=== PATIENT | female | born 1980 | race Caucasian/White ===

== ENCOUNTER 2017-03-28 08:35 | Emergency (ER) | payer SELFPAY ==
[~2017-03-28] VITALS: Ht 180.3 cm; Wt 180.0 kg
[~2017-03-28 08:35] MED LIST: APIX5TAB PO; CARD180C5 PO; CLON1 PO; METF500 PO; METO-309 PO; ROBIDM5S PO
[2017-03-28 08:36] VITALS: BP 217/108; PULSE 112; RESP 24; TEMP 97.8; O2SAT 100
[2017-03-28 08:56] VITALS: RESP 18; O2SAT 99
[2017-03-28] MEDS ORDERED: LORazepam 2 MG/ML VIAL IV PUSH ONE (09:00)
[2017-03-28] MEDS ORDERED: SODIUM CHLORIDE 0.9% FLUSH 10 ML FLUSH IVF PRN (09:00)
--- NOTE | 2017-03-28 09:15 | RADRPT ---
EXAM DATE/TIME: 03/28/2017 08:55 [facility] COMPARISON: CHEST SINGLE AP, September 01, 2016, 13:32. INDICATIONS : Short of breath. MEDICAL HISTORY : atrial fibrillation. SURGICAL HISTORY : None. ENCOUNTER: Initial ACUITY: 1 day PAIN SCORE: 0/10 LOCATION: Bilateral chest FINDINGS: A single view of the chest demonstrates the lungs to be symmetrically aerated without evidence of mas s, infiltrate or effusion. The cardiomediastinal contours are unremarkable. Osseous structures are intact. CONCLUSION: No acute disease. Braxton Rosales MD on March 28, 2017 at 9:12 Board Certified Radiologist. This report was verified electronically.
--- NOTE | 2017-03-28 09:21 | PD ---
HPI Chief Complaint: Dizziness Time Seen by Provider: 08:46 Travel History International Travel<30 days: No Contact w/Intl Traveler<30days: No Traveled to known affect area: No History of Present Illness HPI This is a 36-year-old female with a history of diet-controlled diabetes mellitus , previous A. fib, who presents today with complaints of episode of shortness of breath and dizziness. The patient reports she was on her way to work when she started feeling dizzy and then had shortness of breath.. She denies any chest pain, chest pressure. She denies any nausea or diaphoresis. The patient was on pelvic was a year ago. When asked why, she stated it was because of her A. fib. She has been out of A. fib and they took her off of it. She does have a history of anxiety disorder. She states it feels like a bad anxiety episode. There are no other complaints at this time. PFSH Past Medical History Asthma: Yes (MILD) Anxiety: Yes Cancer: No Cardiovascular Problems: Yes (HTN) Diminished Hearing: No Endocrine: No Genitourinary: No Headaches: Yes Hypertension: Yes Immune Disorder: No Musculoskeletal: Yes Neurologic: Yes Psychiatric: Yes Reproductive: Yes (PCOS) Respiratory: No Integumentary: Yes (PINONODAL CYST) Immunizations Current: Yes Migraines: Yes Sickle Cell Disease: No Tetanus Vaccination: > 5 Years Influenza Vaccination: No ?: Not Menopausal: Yes : 0 Past Surgical History Surgical History: No Previous Surgery Oral Surgery: Yes (TOOTH EXTRACTION) Other Surgery: Yes (DENTAL ) Social History Alcohol Use: Yes (Social) Tobacco Use: Yes (1 PACK PER DAY) Substance Use: No (PT DENIES) Allergies-Medications (Allergen,Severity, Reaction): Coded Allergies: Augmentin (Verified Allergy, Severe, THROAT SWELLS, SOB, 03/28/17) Cipro (Verified Adverse Reaction, Intermediate, Nausea/Vomiting, 03/28/17) Reported Meds & Prescriptions Reported Meds & Active Scripts Active No Active Prescriptions or Reported Medications Review of Systems Except as stated in HPI: all other systems reviewed are Neg General / Constitutional: No: Fever HENT: No: Headaches, Neck Pain Cardiovascular: No: Chest Pain or Discomfort, Palpitations Respiratory: Positive: Shortness of Breath, No: Cough Gastrointestinal: No: Nausea, Vomiting, Abdominal Pain Genitourinary: No: Frequency, Dysuria Musculoskeletal: No: Weakness, Pain Neurologic: Positive: Dizziness, No: Weakness, Syncope, Headache, Sensory Disturbance Psychiatric: Positive: Anxiety (estriol), No: Substance Abuse Physical Exam Narrative GENERAL: Well-developed obese female in no acute respiratory distress. SKIN: Focused skin assessment warm/dry. HEAD: Atraumatic. Normocephalic. EYES: No scleral icterus. No injection or drainage. ENT: Mucous membranes pink and moist. NECK: Trachea midline. Supple CARDIOVASCULAR: Tachycardic with a rate between 101 05. Normal rhythm. No murmur appreciated. RESPIRATORY: No accessory muscle use. Clear to auscultation. Breath sounds equal bilaterally. GASTROINTESTINAL: Abdomen soft, non-tender, nondistended. MUSCULOSKELETAL: No obvious deformities. No clubbing. No cyanosis. Chronic bilateral lower extremity edema. NEUROLOGICAL: Awake and alert. No obvious cranial nerve deficits. Motor grossly within normal limits. Normal speech. PSYCHIATRIC: Appropriate mood and affect; insight and judgment normal. Data Data Last Documented VS Vital Signs Date Time Temp Pulse Resp B/P Pulse Ox O2 Delivery O2 Flow Rate FiO2 03/28/17 10:00 96 17 143/89 99 Room Air 03/28/17 08:36 97.8 Orders Complete Blood Count With Diff (03/28/17 08:52) Comprehensive Metabolic Panel (03/28/17 08:52) D-Dimer (03/28/17 08:52) Ckmb (Isoenzyme) Profile (03/28/17 08:52) Troponin I (03/28/17 08:52) Iv Access Insert/Monitor (03/28/17 08:52) Electrocardiogram (03/28/17 08:52) Ecg Monitoring (03/28/17 08:52) Oximetry (03/28/17 08:52) Oxygen Administration (03/28/17 08:52) Chest, Single Ap (03/28/17 08:52) Sodium Chloride 0.9% Flush (Ns Flush) (03/28/17 09:00) Lorazepam Inj (Ativan Inj) (03/28/17 09:00) Labs Laboratory Tests Test 03/28/17 09:00 White Blood Count 11.4 TH/MM3 Red Blood Count 4.57 MIL/MM3 Hemoglobin 12.9 GM/DL Hematocrit 40.0 % Mean Corpuscular Volume 87.6 FL Mean Corpuscular Hemoglobin 28.2 PG Mean Corpuscular Hemoglobin 32.2 % Concent Red Cell Distribution Width 14.5 % Platelet Count 331 TH/MM3 Mean Platelet Volume 8.3 FL Neutrophils (%) (Auto) 67.2 % Lymphocytes (%) (Auto) 22.4 % Monocytes (%) (Auto) 6.7 % Eosinophils (%) (Auto) 3.1 % Basophils (%) (Auto) 0.6 % Neutrophils # (Auto) 7.6 TH/MM3 Lymphocytes # (Auto) 2.6 TH/MM3 Monocytes # (Auto) 0.8 TH/MM3 Eosinophils # (Auto) 0.3 TH/MM3 Basophils # (Auto) 0.1 TH/MM3 CBC Comment DIFF FINAL Differential Comment D-Dimer Quantitative (PE/DVT) 0.36 MG/L FEU Sodium Level 138 MEQ/L Potassium Level 4.2 MEQ/L Chloride Level 104 MEQ/L Carbon Dioxide Level 26.7 MEQ/L Anion Gap 7 MEQ/L Blood Urea Nitrogen 16 MG/DL Creatinine 0.64 MG/DL Estimat Glomerular Filtration 106 ML/MIN Rate Random Glucose 131 MG/DL Calcium Level 8.5 MG/DL Total Bilirubin 0.2 MG/DL Aspartate Amino Transf 13 U/L (AST/SGOT) Alanine Aminotransferase 23 U/L (ALT/SGPT) Alkaline Phosphatase 97 U/L Total Creatine Kinase 53 U/L Troponin I LESS THAN 0.02 NG/ML Total Protein 7.2 GM/DL Albumin 3.1 GM/DL MDM Medical Decision Making Medical Screen Exam Complete: Yes Emergency Medical Condition: Yes Differential Diagnosis ACS versus pulmonary embolism versus anxiety episode Narrative Course 36-year-old female with a history of anxiety disorder, previous A. 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 The patient is nonfocal and has some no symptoms at the time my examination. She does report a history of anxiety and states that this felt like a "bad anxiety attack". EKG shows no evidence of acute process. D-dimer is normal. Cardiac enzymes are normal. Blood sugar was slightly elevated at 131. The patient be discharged and told to follow up with her primary care physician. I believe this may have been an anxiety attack. She was given 1 mg of Ativan. She'll be discharged home with her friend at the bedside. Diagnosis Primary Impression: Panic disorder [episodic paroxysmal anxiety] without agoraphobia Additional Impression: Elevated random blood glucose level Additional Instructions: Follow up with your primary care physician for further evaluation of the elevated blood glucose. Urine on passing blood glucose was 131 today. Scripts No Active Prescriptions or Reported Meds Disposition: 01 DISCHARGE HOME Condition: Stable Manpreet Reyes MD Mar 28, 2017 09:20
[2017-03-28 09:39] LABS: AUTOMATED NEUTROPHIL # 7.6 TH/MM3 (1.8-7.7); BASOPHIL # 0.1 TH/MM3 (0-0.2); BASOPHIL % 0.6 % (0.0-2.0); EOSINOPHIL # 0.3 TH/MM3 (0-0.4); EOSINOPHIL % 3.1 % (0.0-4.0); HEMO FLAGS DIFF FINAL; LYMPH % 22.4 % (9.0-44.0); LYMPHOCYTE # 2.6 TH/MM3 (1.0-4.8); MEAN CELL VOLUME 87.6 FL (80.0-100.0); MEAN CORPUSCULAR HEMOGLOBIN 28.2 PG (27.0-34.0); MEAN CORPUSCULAR HGB CONC 32.2 % (32.0-36.0); MONO % 6.7 % (0.0-8.0); NEUT % 67.2 % (16.0-70.0); PLATELET COUNT 331 TH/MM3 (150-450); RED BLOOD COUNT 4.57 MIL/MM3 (4.00-5.30); RED CELL DISTRIBUTION WIDTH 14.5 % (11.6-17.2); WHITE BLOOD COUNT 11.4 TH/MM3 (4.0-11.0)
[2017-03-28 10:00] VITALS: BP 143/89; PULSE 96; RESP 17; O2SAT 99
[2017-03-28 10:01] LABS: ANION GAP 7 MEQ/L (5-15); AST (GOT) 13 U/L (15-37); BICARBONATE 26.7 MEQ/L (21.0-32.0); BLOOD UREA NITROGEN 16 MG/DL (7-18); CHLORIDE 104 MEQ/L (98-107); GLOMERULAR FILTRATION RATE 106 ML/MIN (>89); POTASSIUM 4.2 MEQ/L (3.5-5.1); SODIUM (NA) 138 MEQ/L (136-145)
[2017-03-28 10:02] LABS: ALT (GPT) 23 U/L (10-53)
[2017-03-28 10:06] LABS: ALKALINE PHOSPHATASE 97 U/L (45-117); TOTAL BILIRUBIN ADULT 0.2 MG/DL (0.2-1.0)
[2017-03-28 10:15] LABS: CREATINE KINASE 53 U/L (26-192)
[2017-03-28 10:38] VITALS: BP 138/86; TEMP 97.8
--- NOTE | 2017-03-28 22:55 | EKG ---
Date Performed: 03/28/2017 Time Performed: 08:54:33 PTAGE: 36 years EKG: SINUS TACHYCARDIA LOW QRS VOLTAGE IN PRECORDIAL LEADS NONSPECIFIC ST ELEVATION ABNORMAL RHY THM ECG Compared to the PREVIOUS TRACING a fib no longer present DOCTOR: Tavon Elena Interpretating Date/Time 03/28/2017 22:54:11
== END 2017-03-28 10:38 | disposition home or self-care (01) ==
LOC: NEPC 08:35
DX: F41.0 Panic disorder [episodic paroxysmal anxiety] (principal); R73.9 Hyperglycemia, unspecified; I10 Essential (primary) hypertension; F17.210 Nicotine dependence, cigarettes, uncomplicated; R94.31 Abnormal electrocardiogram [ECG] [EKG]
CPT/HCPCS: 71010; 80053; 82550; 84484; 85025; 85379; 93005; 96374; 99285; J2060

== ENCOUNTER 2017-08-16 20:30 | Emergency (ER) | payer SELFPAY ==
[2017-08-16 20:32] VITALS: BP 210/113; PULSE 106; RESP 18; TEMP 98.6; O2SAT 98
--- NOTE | 2017-08-16 20:53 | PD ---
HPI Chief Complaint: Cardiac Complaint Time Seen by Provider: 20:44 Travel History International Travel<30 days: No Contact w/Intl Traveler<30days: No Traveled to known affect area: No History of Present Illness HPI Patient is a 37-year-old female morbidly obese coming in complaining that today she developed chest pain that lasted about 15 minutes it was left-sided did not radiate she did not take anything to for it went away by itself then after the chest pain was gone she had a headache left-sided as well. She reports a history of having A. fib in the past but is not on any medication currently. She has not had much contact with [facility]. without insurance she says. She was on beta rosetta in the past but nothing at this time because her pressure was getting too low on those to meds. PFSH Past Medical History Asthma: Yes (MILD) Anxiety: Yes Cancer: No Cardiovascular Problems: Yes (HTN) Diminished Hearing: No Endocrine: No Gastrointestinal Disorders: No Genitourinary: No Headaches: Yes Heparin Induced Thrombocytopen: No Hypertension: Yes Immune Disorder: No Implanted Vascular Access Dvce: No Musculoskeletal: Yes Neurologic: Yes Psychiatric: Yes Reproductive: Yes (PCOS) Respiratory: No Integumentary: Yes (PINONODAL CYST) Immunizations Current: Yes Migraines: Yes Sickle Cell Disease: No ?: Unknown Menopausal: Yes : 0 Past Surgical History Oral Surgery: Yes (TOOTH EXTRACTION) Other Surgery: Yes (DENTAL ) Social History Alcohol Use: Yes (Social) Tobacco Use: Yes (1 PACK PER DAY) Substance Use: No (PT DENIES) Allergies-Medications (Allergen,Severity, Reaction): Coded Allergies: amoxicillin (Unverified Allergy, Severe, THROAT SWELLS, SOB, 05/15/17) clavulanic acid (Unverified Allergy, Severe, THROAT SWELLS, SOB, 05/15/17) ciprofloxacin (Unverified Adverse Reaction, Intermediate, Nausea/Vomiting , 05/15/17) Reported Meds & Prescriptions Reported Meds & Active Scripts Active Metoprolol Tartrate 25 Mg Tab 25 Mg PO BID Lisinopril 10 Mg Tab 10 Mg PO DAILY Reported [tumeric] 90 Mg BID [ashwagandha] 790 Mg BID Review of Systems Except as stated in HPI: all other systems reviewed are Neg HENT: Positive: Headaches Cardiovascular: Positive: Chest Pain or Discomfort Physical Exam Narrative GENERAL: pt is morbidly obese and non toxic appearing and no apparent distress SKIN: Warm and dry. HEAD: Atraumatic. Normocephalic. EYES: Pupils equal and round. No scleral icterus. No injection or drainage. ENT: No nasal bleeding or discharge. Mucous membranes pink and moist. NECK: Trachea midline. No JVD. CARDIOVASCULAR: Regular rate and rhythm. RESPIRATORY: No accessory muscle use. Clear to auscultation. Breath sounds equal bilaterally. GASTROINTESTINAL: Abdomen soft, morbid obese non-tender, nondistended. Hepatic and splenic margins not palpable. MUSCULOSKELETAL: Extremities without clubbing, cyanosis, or edema. No obvious deformities. NEUROLOGICAL: Awake and alert. No obvious cranial nerve deficits. Motor grossly within normal limits. Five out of 5 muscle strength in the arms and legs. Normal speech. PSYCHIATRIC: Appropriate mood and affect; insight and judgment normal. Data Data Last Documented VS Vital Signs Date Time Temp Pulse Resp B/P (MAP) Pulse Ox O2 Delivery O2 Flow Rate FiO2 08/17/17 00:38 87 18 188/80 (116) 08/16/17 21:08 96 Room Air 08/16/17 20:32 98.6 Orders Orders Complete Blood Count With Diff (08/16/17 20:57) Comprehensive Metabolic Panel (08/16/17 20:57) Troponin I (08/16/17 20:57) Urinalysis - C+S If Indicated (08/16/17 20:57) Electrocardiogram (08/16/17 20:56) Morphine Inj (Morphine Inj) (08/16/17 22:15) Clonidine (Catapres) (08/16/17 23:00) Lisinopril (Prinivil) (08/16/17 23:00) Metoprolol Tartrate Inj (Lopressor Inj) (08/16/17 23:30) Metoprolol Tartrate (Lopressor) (08/16/17 23:30) Anco-Zxipa-Gfwm 325-50-40 Mg (Fioricet 3 (08/16/17 23:30) Troponin I (08/17/17 00:22) Ed Discharge Order (08/17/17 01:07) Labs Laboratory Tests Test 08/16/17 21:20 08/17/17 00:33 White Blood Count 12.0 TH/MM3 Red Blood Count 4.21 MIL/MM3 Hemoglobin 12.7 GM/DL Hematocrit 36.8 % Mean Corpuscular Volume 87.5 FL Mean Corpuscular Hemoglobin 30.3 PG Mean Corpuscular Hemoglobin Concent 34.6 % Red Cell Distribution Width 14.4 % Platelet Count 348 TH/MM3 Mean Platelet Volume 8.2 FL Neutrophils (%) (Auto) 65.3 % Lymphocytes (%) (Auto) 25.7 % Monocytes (%) (Auto) 6.0 % Eosinophils (%) (Auto) 2.2 % Basophils (%) (Auto) 0.8 % Neutrophils # (Auto) 7.8 TH/MM3 Lymphocytes # (Auto) 3.1 TH/MM3 Monocytes # (Auto) 0.7 TH/MM3 Eosinophils # (Auto) 0.3 TH/MM3 Basophils # (Auto) 0.1 TH/MM3 CBC Comment DIFF FINAL Differential Comment Urine Color YELLOW Urine Turbidity HAZY Urine pH 7.0 Urine Specific [place] 1.022 Urine Protein TRACE mg/dL Urine Glucose (UA) NEG mg/dL Urine Ketones NEG mg/dL Urine Occult Blood NEG Urine Nitrite NEG Urine Bilirubin NEG Urine Urobilinogen LESS THAN 2.0 MG/DL Urine Leukocyte Esterase NEG Urine RBC 1 /hpf Urine WBC 1 /hpf Urine Squamous Epithelial Cells 5 /hpf Urine Mucus FEW /lpf Microscopic Urinalysis Comment CULT NOT INDICATED Blood Urea Nitrogen 14 MG/DL Creatinine 0.76 MG/DL Random Glucose 111 MG/DL Total Protein 7.6 GM/DL Albumin 3.4 GM/DL Calcium Level 8.4 MG/DL Alkaline Phosphatase 105 U/L Aspartate Amino Transf (AST/SGOT) 13 U/L Alanine Aminotransferase (ALT/SGPT) 28 U/L Total Bilirubin 0.2 MG/DL Sodium Level 138 MEQ/L Potassium Level 3.9 MEQ/L Chloride Level 104 MEQ/L Carbon Dioxide Level 28.2 MEQ/L Anion Gap 6 MEQ/L Estimat Glomerular Filtration Rate 87 ML/MIN Troponin I LESS THAN 0.02 NG/ML LESS THAN 0.02 NG/ML MDM Medical Decision Making Medical Screen Exam Complete: Yes Emergency Medical Condition: Yes Interpretation(s) EKG MILD SINUS TACHYCARDIA @ RATE 103 Differential Diagnosis Chest pain versus anxiety versus pulmonary versus GERD plus headache Narrative Course Patient's headache is reduced with the morphine IV with good response I will give her clonidine and Lisinopril and close follow up..... bp CONTINUED ELEVATED AND THEN i GAVE HER lOPRESSOR 2.5 MG ivp AND LOPRESSOR 25 MG PO Still continued HTN, Repeated Trop 3 hr and it remained negative. discharged with RX for lisinopril 10 mg and Lopressor 25 mg PO BID Diagnosis Primary Impression: Atypical chest pain Additional Impressions: HTN (hypertension) Qualified Codes: I10 - Essential (primary) hypertension Headache Qualified Codes: R51 - Headache Scripts Metoprolol Tartrate (Metoprolol Tartrate) 25 Mg Tab 25 MG PO BID, #60 TAB 0 Refills Prov: Beto Lerner MD 08/17/17 Lisinopril (Lisinopril) 10 Mg Tab 10 MG PO DAILY, #30 TAB 0 Refills Prov: Beto Lerner MD 08/16/17 Disposition: 01 DISCHARGE HOME Condition: Good Beto Lerner MD Aug 16, 2017 20:53
[2017-08-16 21:08] VITALS: BP 189/81; PULSE 104; O2SAT 96
[2017-08-16 21:33] LABS: AUTOMATED NEUTROPHIL # 7.8 TH/MM3 (1.8-7.7); BASOPHIL # 0.1 TH/MM3 (0-0.2); BASOPHIL % 0.8 % (0.0-2.0); EOSINOPHIL # 0.3 TH/MM3 (0-0.4); EOSINOPHIL % 2.2 % (0.0-4.0); HEMATOCRIT 36.8 % (35.0-46.0); HEMO FLAGS DIFF FINAL; LYMPH % 25.7 % (9.0-44.0); LYMPHOCYTE # 3.1 TH/MM3 (1.0-4.8); MEAN CELL VOLUME 87.5 FL (80.0-100.0); MEAN CORPUSCULAR HEMOGLOBIN 30.3 PG (27.0-34.0); MEAN CORPUSCULAR HGB CONC 34.6 % (32.0-36.0); NEUT % 65.3 % (16.0-70.0); PLATELET COUNT 348 TH/MM3 (150-450); RED BLOOD COUNT 4.21 MIL/MM3 (4.00-5.30); RED CELL DISTRIBUTION WIDTH 14.4 % (11.6-17.2)
[2017-08-16 21:35] LABS: BLOOD, URINE NEG (NEG); COMMENT (UR) CULT NOT INDICATED; CULTURE IF INDICATED CULT NOT INDICATED; GLUCOSE,URINE NEG (NEG); KETONE, URINE NEG (NEG); MUCUS URINE FEW /lpf (OCC); NITRITE,URINE NEG (NEG); SQUAMOUS EPITHELIAL CELL URINE 5 /hpf (0-5); URINE COLOR YELLOW (YELLW/STRAW)
[2017-08-16 21:54] LABS: ANION GAP 6 MEQ/L (5-15); AST (GOT) 13 U/L (15-37); BICARBONATE 28.2 MEQ/L (21.0-32.0); BLOOD UREA NITROGEN 14 MG/DL (7-18); CHLORIDE 104 MEQ/L (98-107); GLOMERULAR FILTRATION RATE 87 ML/MIN (>89); POTASSIUM 3.9 MEQ/L (3.5-5.1); SODIUM (NA) 138 MEQ/L (136-145)
[2017-08-16 21:55] LABS: ALT (GPT) 28 U/L (10-53)
[2017-08-16 21:59] LABS: ALKALINE PHOSPHATASE 105 U/L (45-117); TOTAL BILIRUBIN ADULT 0.2 MG/DL (0.2-1.0)
[2017-08-16] MEDS ORDERED: MORPHINE SULFATE 2 MG/ML INJ IV PUSH ONE (22:15)
[2017-08-16 22:43] VITALS: BP 186/88
[2017-08-16] MEDS ORDERED: cloNIDine HCL 0.1 MG TAB PO ONE (23:00)
[2017-08-16] MEDS ORDERED: LISINOPRIL 10 MG TAB PO ONE (23:00)
[2017-08-16] MEDS ORDERED: LISI10TA3 PO (23:22)
[2017-08-16] MEDS ORDERED: ACETAMIN 325 MG/BUTALBITAL 50 MG/CAFFEINE 40 MG TAB PO ONE (23:30)
[2017-08-16] MEDS ORDERED: METOPROLOL TARTRATE 25 MG TAB PO ONE (23:30)
[2017-08-16] MEDS ORDERED: METOPROLOL TARTRATE 5 MG/5 ML VIAL IV PUSH ONE (23:30)
[2017-08-16] MEDS ORDERED: tumeric (23:31)
[2017-08-16] MEDS ORDERED: ashwagandha (23:31)
[2017-08-17 00:38] VITALS: BP 188/80; PULSE 87; RESP 18
[2017-08-17] MEDS ORDERED: METO25TA3 PO (01:09)
--- NOTE | 2017-08-17 15:14 | EKG ---
Date Performed: 08/16/2017 Time Performed: 20:56:01 PTAGE: 37 years EKG: SINUS TACHYCARDIA ABNORMAL RHYTHM ECG Since PREVIOUS TRACING , no significant change noted PREVIOUS TRACIN03/28/2017 08.54 DOCTOR: Renzo Balbuena Interpretating Date/Time 08/17/2017 15:13:57
== END 2017-08-17 02:41 | disposition home or self-care (01) ==
LOC: NEPC 20:30
DX: R07.89 Other chest pain (principal); R51 Headache; I10 Essential (primary) hypertension; R00.0 Tachycardia, unspecified; E66.01 Morbid (severe) obesity due to excess calories; J45.909 Unspecified asthma, uncomplicated; F41.9 Anxiety disorder, unspecified; R94.31 Abnormal electrocardiogram [ECG] [EKG]; F17.200 Nicotine dependence, unspecified, uncomplicated
CPT/HCPCS: 80053; 81001; 84484; 85025; 93005; 96374; 96375; 99284; J2270

== ENCOUNTER 2017-10-14 18:57 | Emergency (ER) | payer SELFPAY ==
[2017-10-14] VITALS (7 sets, daily range): BP systolic 138–210; BP diastolic 75–99; PULSE 73–106; RESP 18–24; TEMP 97.6–98.7; O2SAT 96–97
[~2017-10-14] VITALS: Ht 180.3 cm; Wt 192.5 kg
[~2017-10-14 18:57] MED LIST changes: -APIX5TAB PO; -CARD180C5 PO; -CLON1 PO; +LISI10TA3 PO; -METF500 PO; -METO-309 PO; +METO25TA3 PO; -ROBIDM5S PO; +ashwagandha; +tumeric
--- NOTE | 2017-10-14 20:34 | PD ---
HPI Chief Complaint: Cold / Flu Symptoms Time Seen by Provider: 20:23 Travel History International Travel<30 days: No Contact w/Intl Traveler<30days: No Traveled to known affect area: No History of Present Illness HPI The patient is a 37-year-old female who complains of low-grade fever, cough, wheezing for 4 days. The patient is a heavy smoker, she smokes one pack a day. She does have a history of bronchitis. She states there is no possibility of . PFSH Past Medical History Asthma: Yes (MILD) Anxiety: Yes Cancer: No Cardiovascular Problems: Yes (HTN) Diminished Hearing: No Endocrine: No Gastrointestinal Disorders: No Genitourinary: No Headaches: Yes Heparin Induced Thrombocytopen: No Hypertension: Yes Immune Disorder: No Implanted Vascular Access Dvce: No Musculoskeletal: Yes Neurologic: Yes Psychiatric: Yes Reproductive: Yes (PCOS) Respiratory: No Integumentary: Yes (PINONODAL CYST) Immunizations Current: Yes Migraines: Yes Sickle Cell Disease: No LMP: UNKNOWN Menopausal: Yes : 0 Past Surgical History Oral Surgery: Yes (TOOTH EXTRACTION) Other Surgery: Yes (DENTAL ) Social History Alcohol Use: Yes (Social) Tobacco Use: Yes (1 PACK PER DAY) Substance Use: No (PT DENIES) Allergies-Medications (Allergen,Severity, Reaction): Coded Allergies: amoxicillin (Unverified Allergy, Severe, THROAT SWELLS, SOB, 05/15/17) clavulanic acid (Unverified Allergy, Severe, THROAT SWELLS, SOB, 05/15/17) ciprofloxacin (Unverified Adverse Reaction, Intermediate, Nausea/Vomiting , 05/15/17) Reported Meds & Prescriptions Reported Meds & Active Scripts Active Metoprolol Tartrate 25 Mg Tab 25 Mg PO BID Lisinopril 10 Mg Tab 10 Mg PO DAILY Reported [tumeric] 90 Mg BID [ashwagandha] 790 Mg BID Review of Systems Except as stated in HPI: all other systems reviewed are Neg Physical Exam Narrative GENERAL: The patient is obese, alert, oriented 3 in slight respiratory distress. Her vital signs show blood pressure 210/99 with heart rate of 106 and respirations 24 and oximetry 97%. SKIN: Focused skin assessment warm/dry. HEAD: Atraumatic. Normocephalic. EYES: Pupils equal and round. No scleral icterus. No injection or drainage. ENT: No nasal bleeding or discharge. Mucous membranes pink and moist. NECK: Trachea midline. No JVD. CARDIOVASCULAR: Regular rate and rhythm. No murmur appreciated. RESPIRATORY: No accessory muscle use. Bilateral wheezes are heard in all lung espinosa. Breath sounds equal bilaterally. GASTROINTESTINAL: Abdomen soft, non-tender, nondistended. Hepatic and splenic margins not palpable. MUSCULOSKELETAL: No obvious deformities. No clubbing. No cyanosis. No edema. NEUROLOGICAL: Awake and alert. No obvious cranial nerve deficits. Motor grossly within normal limits. Normal speech. PSYCHIATRIC: Appropriate mood and affect; insight and judgment normal. Data Data Last Documented VS Vital Signs Date Time Temp Pulse Resp B/P (MAP) Pulse Ox O2 Delivery O2 Flow Rate FiO2 10/14/17 20:45 Room Air 10/14/17 20:45 18 96 10/14/17 20:44 97.9 94 Orders Orders Influenzae A/B Antigen (10/14/17 20:28) Oximetry (10/14/17 20:28) Chest, Pa & Lat (10/14/17 20:28) Albuterol-Ipratropium Neb (Duoneb Neb) (10/14/17 20:30) Ecg Monitoring (10/14/17 20:28) Prednisone (Deltasone) (10/14/17 20:45) MDM Medical Decision Making Medical Screen Exam Complete: Yes Emergency Medical Condition: Yes Medical Record Reviewed: Yes Interpretation(s) The chest x-ray shows no acute cardiopulmonary disease. The influenza A/B antigen is negative for flu a and B antigen. Differential Diagnosis Flu syndrome, viral upper respiratory infection, bronchitis, pneumonia, sinusitis Narrative Course The patient appears to have bronchitis with bronchospasm. She will be given an albuterol HFA. She did get some relief with the DuoNeb treatments. She'll be put on a five-day course of prednisone. She needs to follow-up with primary care physician this week. She needs to discontinue smoking and drink plenty of liquids. She is given a seven-day work excuse. The patient is worried about sinusitis and will be given a Zithromax. Diagnosis Primary Impression: Bronchitis with bronchospasm Additional Instructions: Rest is important. You'll be given a 7 day work excuse. Absolutely quit smoking. The steroids are one tablet daily for 5 days. The antibiotic is also one tablet daily for 5 days. Follow-up with a primary care physician this week. Med/Other Pt SpecificInfo: Prescription(s) given Scripts Albuterol 8.5 GM Inh (Proair Hfa 8.5 GM Inh) 90 Mcg/Act Aer 2 PUFF INH Q4-6H Y for SHORTNESS OF BREATH, #1 INHALER 0 Refills 108 mcg/actuation Prov: Robinson Palumbo MD 10/14/17 Azithromycin (Zithromax) 500 Mg Tab 500 MG PO DAILY for Infection for 5 Days, #5 TAB 0 Refills Prov: Robinson Palumbo MD 10/14/17 Prednisone (Prednisone) 50 Mg Tab 50 MG PO DAILY for 5 Days, #5 TAB 0 Refills Prov: Robinson Palumbo MD 10/14/17 Disposition: 01 DISCHARGE HOME Condition: Stable Robinson Palumbo MD Oct 14, 2017 20:34
[2017-10-14] MEDS: RESP: ALBUTEROL 2.5 MG/IPRATROPIUM 0.5 MG NEB (SCH) INH ×3 (20:40→21:02)
[2017-10-14] MEDS ORDERED: methylPREDNISolone SOD SUCC 125 MG/2 ML VIAL IV PUSH ONE (20:45)
[2017-10-14] MEDS ORDERED: predniSONE 20 MG TAB PO ONE (20:45)
--- NOTE | 2017-10-14 21:43 | RADRPT ---
EXAM DATE/TIME: 10/14/2017 20:40 [facility] COMPARISON: CHEST SINGLE AP, March 28, 2017, 8:55. INDICATIONS : Fever, cough, shortness of breath. MEDICAL HISTORY : None. SURGICAL HISTORY : None. ENCOUNTER: Initial ACUITY: 3 days PAIN SCORE: 0/10 LOCATION: Bilateral chest FINDINGS: PA and lateral views of the chest demonstrate the lungs to be symmetrically aerated without evidence of mass, infiltrate or effusion. The cardiomediastinal contours are unremarkable. Osseous structure s are intact. CONCLUSION: No evidence of acute cardiopulmonary disease. Braxton Tierney MD on October 14, 2017 at 21:40 Board Certified Radiologist. This report was verified electronically.
[2017-10-14] MEDS ORDERED: ZITH500T PO (22:04)
[2017-10-14] MEDS ORDERED: PRED50 PO (22:04)
[2017-10-14] MEDS ORDERED: ALBUAER3 INH (22:05)
== END 2017-10-14 22:50 | disposition home or self-care (01) ==
LOC: PHED 18:57
DX: J20.9 Acute bronchitis, unspecified (principal); J45.909 Unspecified asthma, uncomplicated; I10 Essential (primary) hypertension; E66.9 Obesity, unspecified; F17.210 Nicotine dependence, cigarettes, uncomplicated
CPT/HCPCS: 71046; 87804; 94640; 94664; 99284; J7512

== ENCOUNTER 2017-11-07 22:34 | Emergency (ER) | payer SELFPAY ==
[~2017-11-07] VITALS: Ht 180.3 cm; Wt 196.9 kg
[~2017-11-07 22:34] MED LIST changes: +ALBUAER3 INH; +PRED50 PO; +ZITH500T PO
[2017-11-07 22:50] VITALS: BP 164/93; PULSE 105; RESP 20; TEMP 97.9; O2SAT 96
[2017-11-07] MEDS ORDERED: SODIUM CHLORIDE 0.9% FLUSH 10 ML FLUSH IV FLUSH PRN (23:15)
--- NOTE | 2017-11-07 23:18 | PD ---
HPI Chief Complaint: Abdominal Pain Time Seen by Provider: 22:56 Travel History International Travel<30 days: No Contact w/Intl Traveler<30days: No Traveled to known affect area: No History of Present Illness HPI The patient was seen and examined in the presence of the nurse. This patient complains of 2 things. She complains of some abdominal pain. Going on 3-4 weeks. Located in the epigastrium. She's been eating throughout. Has not had any evaluation. Some nausea but no vomiting or diarrhea or fever. She reports history of polycystic ovary disease. She also complains of some difficulty hearing in her left ear. She does not have ear pain or fever. Regarding the abdominal pain, there are no alleviating factors. No exacerbating factors. PFSH Past Medical History Asthma: Yes (MILD) Atrial Fibrillation: Yes Anxiety: Yes Cancer: No Cardiovascular Problems: Yes (HTN) Diminished Hearing: No Endocrine: No Gastrointestinal Disorders: No Genitourinary: No Headaches: Yes Heparin Induced Thrombocytopen: No Hypertension: Yes Immune Disorder: No Implanted Vascular Access Dvce: No Musculoskeletal: Yes Neurologic: Yes Psychiatric: Yes Reproductive: Yes (PCOS) Respiratory: No Integumentary: Yes (PINONODAL CYST) Immunizations Current: Yes Migraines: Yes Sickle Cell Disease: No Tetanus Vaccination: Unknown Influenza Vaccination: No ?: Not Menopausal: Yes : 0 Past Surgical History Oral Surgery: Yes (TOOTH EXTRACTION) Other Surgery: Yes (DENTAL ) Social History Alcohol Use: Yes (Social) Tobacco Use: Yes (1 PACK PER DAY) Substance Use: No (PT DENIES) Allergies-Medications (Allergen,Severity, Reaction): Coded Allergies: amoxicillin (Unverified Allergy, Severe, THROAT SWELLS, SOB, 11/07/17) clavulanic acid (Unverified Allergy, Severe, THROAT SWELLS, SOB, 11/07/17) ciprofloxacin (Unverified Adverse Reaction, Intermediate, Nausea/Vomiting , 11/07/17) Reported Meds & Prescriptions Reported Meds & Active Scripts Active Proair Hfa 8.5 GM Inh (Albuterol Sulfate) 90 Mcg/Act Aer 2 Puff INH Q4-6H PRN 108 mcg/actuation Zithromax (Azithromycin) 500 Mg Tab 500 Mg PO DAILY 5 Days Prednisone 50 Mg Tab 50 Mg PO DAILY 5 Days Metoprolol Tartrate 25 Mg Tab 25 Mg PO BID Lisinopril 10 Mg Tab 10 Mg PO DAILY Reported [tumeric] 90 Mg BID [ashwagandha] 790 Mg BID Review of Systems General / Constitutional: No: Fever Eyes: No: Visual changes HENT: No: Headaches Cardiovascular: No: Chest Pain or Discomfort Respiratory: No: Shortness of Breath Gastrointestinal: Positive: Nausea, Abdominal Pain Genitourinary: No: Dysuria Musculoskeletal: No: Pain Skin: No Rash Neurologic: No: Weakness Psychiatric: No: Depression Endocrine: No: Polydipsia Hematologic/Lymphatic: No: Easy Bruising Physical Exam Narrative GENERAL: Morbidly obese well-developed patient in no apparent distress. SKIN: Focused skin assessment reveals no rash and nodules. Skin is Warm and dry. HEAD: Atraumatic. Normocephalic. EYES: Pupils equal and round. No scleral icterus. No injection or drainage. ENT: No nasal bleeding or discharge. Mucous membranes pink and moist. Right TM is normal. Left TM has clear fluid and it as evidenced by air-fluid level and bubble NECK: Trachea midline. No JVD. CARDIOVASCULAR: Regular rate and rhythm. No murmur appreciated. RESPIRATORY: No accessory muscle use. Clear to auscultation. Breath sounds equal bilaterally. GASTROINTESTINAL: Abdomen soft, non-tender, nondistended. Hepatic and splenic margins not palpable. MUSCULOSKELETAL: No obvious deformities. No clubbing. No cyanosis. No edema. NEUROLOGICAL: Awake and alert. No obvious cranial nerve deficits. Motor grossly within normal limits. Normal speech. PSYCHIATRIC: Appropriate mood and affect; insight and judgment normal. Data Data Last Documented VS Vital Signs Date Time Temp Pulse Resp B/P (MAP) Pulse Ox O2 Delivery O2 Flow Rate FiO2 11/07/17 22:50 97.9 105 20 164/93 (116) 96 Orders Orders Complete Blood Count With Diff (11/07/17 23:10) Comprehensive Metabolic Panel (11/07/17 23:10) Lipase (11/07/17 23:10) Urinalysis - C+S If Indicated (11/07/17 23:10) Iv Access Insert/Monitor (11/07/17 23:10) Ecg Monitoring (11/07/17 23:10) Oximetry (11/07/17 23:10) Sodium Chloride 0.9% Flush (Ns Flush) (2/7/18 23:15) Ed Urine Pregnancytest Poc (11/07/17 23:10) Labs Laboratory Tests Test 11/07/17 23:31 [facility] Medical Decision Making Medical Screen Exam Complete: Yes Emergency Medical Condition: Yes Medical Record Reviewed: Yes Differential Diagnosis Differential diagnosis includes pancreatitis, biliary colic, hepatitis, GERD, peptic ulcer disease. Narrative Course I have reviewed the patient's electronic medical record. Patient is here multiple times for anxiety issues Patient's left ear exam is consistent with serous otitis. This is likely to resolve spontaneously. Not recommending decongestants as she has hypertension. I've ordered a lab workup for epigastric pain Case checked out to Dr. Palumbo at midnight to assist with disposition Diagnosis Primary Impression: Abdominal pain Qualified Codes: R10.13 - Epigastric pain Genaro Saha MD Nov 07, 2017 23:18
[2017-11-07 23:39] LABS: BILIRUBIN, URINE NEG (NEG); BLOOD, URINE NEG (NEG); GLUCOSE,URINE NEG (NEG); KETONE, URINE NEG (NEG); NITRITE,URINE NEG (NEG); PH, URINE 5.5 (5.0-8.5); URINE LEUKOCYTE ESTERASE TRACE (NEG)
[2017-11-07 23:48] VITALS: O2SAT 96
[2017-11-07 23:48] LABS: URINE COLOR YELLOW (YELLW/STRAW)
[2017-11-07 23:49] LABS: BACTERIA, URINE OCC /hpf; RBC, URINE 0-2 /hpf (0-3); SQUAMOUS EPITHELIAL CELL URINE > 8 /hpf (0-5)
[2017-11-07 23:50] VITALS: BP 150/76; PULSE 97; RESP 18; O2SAT 96
[2017-11-07 23:52] LABS: AUTOMATED NEUTROPHIL # 5.8 TH/MM3 (1.8-7.7); BASOPHIL # 0.1 TH/MM3 (0-0.2); BASOPHIL % 0.5 % (0.0-2.0); EOSINOPHIL # 0.4 TH/MM3 (0-0.4); EOSINOPHIL % 3.6 % (0.0-4.0); HEMATOCRIT 36.6 % (35.0-46.0); HEMOGLOBIN 12.5 GM/DL (11.6-15.3); LYMPH % 34.9 % (9.0-44.0); LYMPHOCYTE # 3.7 TH/MM3 (1.0-4.8); MEAN CELL VOLUME 86.9 FL (80.0-100.0); MEAN CORPUSCULAR HEMOGLOBIN 29.7 PG (27.0-34.0); MEAN CORPUSCULAR HGB CONC 34.2 % (32.0-36.0); MONO % 6.3 % (0.0-8.0); MONOCYTE # 0.7 TH/MM3 (0-0.9); NEUT % 54.7 % (16.0-70.0); PLATELET COUNT 378 TH/MM3 (150-450); RED BLOOD COUNT 4.22 MIL/MM3 (4.00-5.30); RED CELL DISTRIBUTION WIDTH 14.6 % (11.6-17.2); WHITE BLOOD COUNT 10.7 TH/MM3 (4.0-11.0)
[2017-11-08 00:05] LABS: CHLORIDE 103 MEQ/L (98-107); SODIUM (NA) 136 MEQ/L (136-145)
[2017-11-08 00:08] LABS: CALCIUM 8.9 MG/DL (8.5-10.1)
[2017-11-08 00:09] LABS: ALBUMIN 3.3 GM/DL (3.4-5.0); BICARBONATE 27.3 MEQ/L (21.0-32.0); BLOOD UREA NITROGEN 20 MG/DL (7-18); GLUCOSE,RANDOM 118 MG/DL (74-106)
[2017-11-08 00:11] LABS: ALT (GPT) 27 U/L (10-53); AST (GOT) 15 U/L (15-37)
[2017-11-08 00:12] LABS: CREATININE 0.68 MG/DL (0.50-1.00); GLOMERULAR FILTRATION RATE 98 ML/MIN (>89)
[2017-11-08 00:13] LABS: TOTAL BILIRUBIN ADULT 0.2 MG/DL (0.2-1.0); TOTAL PROTEIN 7.6 GM/DL (6.4-8.2)
[2017-11-08 00:14] LABS: ALKALINE PHOSPHATASE 100 U/L (45-117)
[2017-11-08] MEDS ORDERED: OMEP20TA93 PO (00:53)
[2017-11-08] MEDS ORDERED: PROC10TA PO (00:53)
[2017-11-08] MEDS ORDERED: BACT800T5 PO (00:53)
--- NOTE | 2017-11-08 00:54 | PD ---
Physical Exam Time Seen by Provider: 00:[address] Saha left this patient with me to check the laboratory and, if not extremely abnormal, discharge. Data Data Last Documented VS Vital Signs Date Time Temp Pulse Resp B/P (MAP) Pulse Ox O2 Delivery O2 Flow Rate FiO2 11/07/17 23:50 97 18 150/76 (100) 96 Room Air 11/07/17 22:50 97.9 Orders Orders Complete Blood Count With Diff (11/07/17 23:10) Comprehensive Metabolic Panel (11/07/17 23:10) Lipase (11/07/17 23:10) Urinalysis - C+S If Indicated (11/07/17 23:10) Iv Access Insert/Monitor (11/07/17 23:10) Ecg Monitoring (11/07/17 23:10) Oximetry (11/07/17 23:10) Sodium Chloride 0.9% Flush (Ns Flush) (11/07/17 23:15) Ed Urine Pregnancytest Poc (11/07/17 23:10) Labs Laboratory Tests Test 11/07/17 23:31 11/07/17 23:45 Urine Color YELLOW Urine Turbidity HAZY Urine pH 5.5 Urine Specific [place] 1.025 Urine Protein NEG mg/dL Urine Glucose (UA) NEG mg/dL Urine Ketones NEG mg/dL Urine Occult Blood NEG Urine Nitrite NEG Urine Bilirubin NEG Urine Leukocyte Esterase TRACE Urine RBC 0-2 /hpf Urine WBC 6-8 /hpf Urine Squamous Epithelial Cells > 8 /hpf Urine Bacteria OCC /hpf Microscopic Urinalysis Comment CULT NOT INDICATED White Blood Count 10.7 TH/MM3 Red Blood Count 4.22 MIL/MM3 Hemoglobin 12.5 GM/DL Hematocrit 36.6 % Mean Corpuscular Volume 86.9 FL Mean Corpuscular Hemoglobin 29.7 PG Mean Corpuscular Hemoglobin Concent 34.2 % Red Cell Distribution Width 14.6 % Platelet Count 378 TH/MM3 Mean Platelet Volume 8.0 FL Neutrophils (%) (Auto) 54.7 % Lymphocytes (%) (Auto) 34.9 % Monocytes (%) (Auto) 6.3 % Eosinophils (%) (Auto) 3.6 % Basophils (%) (Auto) 0.5 % Neutrophils # (Auto) 5.8 TH/MM3 Lymphocytes # (Auto) 3.7 TH/MM3 Monocytes # (Auto) 0.7 TH/MM3 Eosinophils # (Auto) 0.4 TH/MM3 Basophils # (Auto) 0.1 TH/MM3 CBC Comment DIFF FINAL Differential Comment Blood Urea Nitrogen 20 MG/DL Creatinine 0.68 MG/DL Random Glucose 118 MG/DL Total Protein 7.6 GM/DL Albumin 3.3 GM/DL Calcium Level 8.9 MG/DL Alkaline Phosphatase 100 U/L Aspartate Amino Transf (AST/SGOT) 15 U/L Alanine Aminotransferase (ALT/SGPT) 27 U/L Total Bilirubin 0.2 MG/DL Sodium Level 136 MEQ/L Potassium Level 3.8 MEQ/L Chloride Level 103 MEQ/L Carbon Dioxide Level 27.3 MEQ/L Anion Gap 6 MEQ/L Estimat Glomerular Filtration Rate 98 ML/MIN Lipase 89 U/L MDM Medical Record Reviewed: Yes Supervised Visit with KARSTEN: No Interpretation(s) The CBC is normal. The complete metabolic profile shows an albumin of 3.3 and BUN of 20 but is otherwise normal. The lipase is normal. The urine shows hazy turbidity, trace leukocyte esterase with 6-8 white cells but is otherwise normal and culture is not indicated. Differential Diagnosis Gastritis, pancreatitis, ulcer pain, colitis, urinary tract infection Narrative Course The patient does have left flank pain and frequent urination. She states sometimes she can hardly make it to the bathroom. The urine is borderline but does show trace leukocyte esterase and 6-8 white cells. It also shows occasional bacteria. Diagnosis Primary Impression: Abdominal pain Qualified Codes: R10.13 - Epigastric pain Additional Impressions: Urinary tract infection Gastritis Nausea and vomiting Med/Other Pt SpecificInfo: Prescription(s) given Scripts Sulfamethoxazole-Trimethoprim (Bactrim DS) 800-160 Mg Tab 1 TAB PO BID for Infection, #20 TAB 0 Refills Prov: Robinson Palumbo MD 11/08/17 Omeprazole (Omeprazole) 20 Mg Tab 20 MG PO DAILY, #30 TAB 0 Refills Prov: Robinson Palumbo MD 11/08/17 Prochlorperazine Maleate (Prochlorperazine Maleate) 10 Mg Tab 10 MG PO Q6H Y for NAUSEA OR VOMITING, #20 TAB 0 Refills Prov: Robinson Palumbo MD 11/08/17 Disposition: 01 DISCHARGE HOME Condition: Stable Robinson Palumbo MD Nov 08, 2017 00:53
[2017-11-08] MEDS ORDERED: SULFAMETHOXAZOLE-TRIMETHOPRIM DS 800-160 MG TAB PO ONE (01:00)
[2017-11-08 01:08] VITALS: BP 150/82; PULSE 95; RESP 18; O2SAT 96
== END 2017-11-08 01:09 | disposition home or self-care (01) ==
LOC: PHED 22:34
DX: K29.70 Gastritis, unspecified, without bleeding (principal); N39.0 Urinary tract infection, site not specified; E28.2 Polycystic ovarian syndrome; I10 Essential (primary) hypertension; I48.91 Unspecified atrial fibrillation; J45.909 Unspecified asthma, uncomplicated; F41.9 Anxiety disorder, unspecified; F17.210 Nicotine dependence, cigarettes, uncomplicated; Z88.0 Allergy status to penicillin; Z88.8 Allergy status to other drugs, medicaments and biological substances; Z79.899 Other long term (current) drug therapy
CPT/HCPCS: 80053; 81001; 83690; 84703; 85025; 99283

== ENCOUNTER 2017-12-09 22:10 | Emergency (ER) | payer SELFPAY ==
[~2017-12-09] VITALS: Ht 86.4 cm; Wt 197.7 kg
[~2017-12-09 22:10] MED LIST changes: +BACT800T5 PO; +OMEP20TA93 PO; +PROC10TA PO
[2017-12-09 22:15] VITALS: BP 225/109; PULSE 108; RESP 22; TEMP 97.6; O2SAT 97
[2017-12-09 22:29] VITALS: BP 177/84; PULSE 97; RESP 18; O2SAT 98
[2017-12-09] MEDS ORDERED: SODIUM CHLORIDE 0.9% FLUSH 10 ML FLUSH IV FLUSH PRN (22:30)
--- NOTE | 2017-12-09 22:34 | PD ---
HPI Chief Complaint: Flank/Kidney Pain Time Seen by Provider: 22:27 Travel History International Travel<30 days: No Contact w/Intl Traveler<30days: No Traveled to known affect area: No History of Present Illness HPI 37-year-old female patient with history of recent UTI, here because of right flank pain that she has noticed today, states it is 7 out of 10, radiates down to her back into the other side. She denies any nausea, vomiting, fevers, or any urinary symptoms. She states that she did not have urinary symptoms with the last infection either. She does not note any exacerbating alleviating factors. Modifying Factors: None Associated Signs & Symptoms: Right flank pain Risk Factors: None PFSH Past Medical History Asthma: Yes (MILD) Atrial Fibrillation: Yes Anxiety: Yes Cancer: No Cardiovascular Problems: Yes (HTN) Diminished Hearing: No Endocrine: No Gastrointestinal Disorders: No Genitourinary: No Headaches: Yes Heparin Induced Thrombocytopen: No Hypertension: Yes Immune Disorder: No Implanted Vascular Access Dvce: No Musculoskeletal: Yes Neurologic: Yes Psychiatric: Yes Reproductive: Yes (PCOS) Respiratory: No Integumentary: Yes (PINONODAL CYST) Immunizations Current: Yes Migraines: Yes Sickle Cell Disease: No ?: Not Menopausal: Yes : 0 Past Surgical History Oral Surgery: Yes (TOOTH EXTRACTION) Other Surgery: Yes (DENTAL ) Social History Alcohol Use: Yes (Social) Tobacco Use: Yes (1 PACK PER DAY) Substance Use: No (PT DENIES) Allergies-Medications (Allergen,Severity, Reaction): Coded Allergies: amoxicillin (Verified Allergy, Severe, THROAT SWELLS, SOB, 12/09/17) clavulanic acid (Verified Allergy, Severe, THROAT SWELLS, SOB, 12/09/17) ciprofloxacin (Verified Adverse Reaction, Intermediate, Nausea/Vomiting, ) Reported Meds & Prescriptions Reported Meds & Active Scripts Active Review of Systems Except as stated in HPI: all other systems reviewed are Neg Physical Exam Narrative GENERAL: Well-developed morbidly obese middle-aged female patient currently in mild distress. Awake and oriented 3. SKIN: Focused skin assessment warm/dry. HEAD: Atraumatic. Normocephalic. EYES: Pupils equal and round. No scleral icterus. No injection or drainage. ENT: No nasal bleeding or discharge. Mucous membranes pink and moist. NECK: Trachea midline. No JVD. CARDIOVASCULAR: Regular rate and rhythm. No murmur appreciated. RESPIRATORY: No accessory muscle use. Clear to auscultation. Breath sounds equal bilaterally. GASTROINTESTINAL: Abdomen soft, obese, mild right upper quadrant tenderness, nondistended. Hepatic and splenic margins not palpable. MUSCULOSKELETAL: No obvious deformities. No clubbing. No cyanosis. No edema. NEUROLOGICAL: Awake and alert. No obvious cranial nerve deficits. Motor grossly within normal limits. Normal speech. PSYCHIATRIC: Appropriate mood and affect; insight and judgment normal. Data Data Last Documented VS Vital Signs Date Time Temp Pulse Resp B/P (MAP) Pulse Ox O2 Delivery O2 Flow Rate FiO2 12/09/17 22:29 97 18 177/84 (115) 98 Room Air 12/09/17 22:15 97.6 Orders Orders Urinalysis - C+S If Indicated (12/09/17 22:23) Ed Urine Pregnancytest Poc (12/09/17 22:23) Complete Blood Count With Diff (12/09/17 22:28) Comprehensive Metabolic Panel (12/09/17 22:28) Lipase (12/09/17 22:28) Iv Access Insert/Monitor (12/09/17 22:28) Ecg Monitoring (12/09/17 22:28) Oximetry (12/09/17 22:28) Sodium Chloride 0.9% Flush (Ns Flush) (12/09/17 22:30) Us Abdomen Gallbladder (12/09/17 22:35) Us Kidney/Renal/Bladder (12/09/17 22:35) Ct Abd/Pel W Iv Contrast(Rout) (12/10/17 00:24) Iohexol 350 Inj (Omnipaque 350 Inj) (12/10/17 00:51) Tramadol (Ultram) (12/10/17 01:15) Ed Discharge Order (12/10/17 01:06) Labs Laboratory Tests Test 12/09/17 22:35 12/09/17 22:40 Urine Collection Type CLEAN CATCH Urine Color YELLOW Urine Turbidity SL CLOUDY Urine pH 6.0 Urine Specific [place] 1.025 Urine Protein NEG mg/dL Urine Glucose (UA) NEG mg/dL Urine Ketones NEG mg/dL Urine Occult Blood NEG Urine Nitrite NEG Urine Bilirubin NEG Urine Urobilinogen 0.2 MG/DL Urine Leukocyte Esterase NEG Urine WBC 0-2 /hpf Urine Squamous Epithelial Cells > 8 /hpf Urine Amorphous Sediment FEW Urine Bacteria OCC /hpf Urine Mucus OCC /lpf Microscopic Urinalysis Comment CULT NOT INDICATED White Blood Count 13.1 TH/MM3 Red Blood Count 4.40 MIL/MM3 Hemoglobin 13.0 GM/DL Hematocrit 38.6 % Mean Corpuscular Volume 87.8 FL Mean Corpuscular Hemoglobin 29.5 PG Mean Corpuscular Hemoglobin Concent 33.6 % Red Cell Distribution Width 14.5 % Platelet Count 349 TH/MM3 Mean Platelet Volume 8.0 FL Neutrophils (%) (Auto) 60.6 % Lymphocytes (%) (Auto) 28.0 % Monocytes (%) (Auto) 6.2 % Eosinophils (%) (Auto) 3.4 % Basophils (%) (Auto) 1.8 % Neutrophils # (Auto) 8.0 TH/MM3 Lymphocytes # (Auto) 3.7 TH/MM3 Monocytes # (Auto) 0.8 TH/MM3 Eosinophils # (Auto) 0.4 TH/MM3 Basophils # (Auto) 0.2 TH/MM3 CBC Comment DIFF FINAL Differential Comment Blood Urea Nitrogen 16 MG/DL Creatinine 0.73 MG/DL Random Glucose 121 MG/DL Total Protein 7.7 GM/DL Albumin 3.4 GM/DL Calcium Level 8.5 MG/DL Alkaline Phosphatase 107 U/L Aspartate Amino Transf (AST/SGOT) 10 U/L Alanine Aminotransferase (ALT/SGPT) 20 U/L Total Bilirubin LESS THAN 0.1 MG/DL Sodium Level 138 MEQ/L Potassium Level 3.9 MEQ/L Chloride Level 104 MEQ/L Carbon Dioxide Level 27.1 MEQ/L Anion Gap 7 MEQ/L Estimat Glomerular Filtration Rate 91 ML/MIN Lipase 101 U/L [facility] Medical Decision Making Medical Screen Exam Complete: Yes Emergency Medical Condition: Yes Medical Record Reviewed: Yes Interpretation(s) Laboratory Tests Test 12/09/17 22:35 12/09/17 22:40 Urine Squamous Epithelial Cells > 8 /hpf (0-5) Urine Bacteria OCC /hpf (NONE) White Blood Count 13.1 TH/MM3 (4.0-11.0) Neutrophils # (Auto) 8.0 TH/MM3 (1.8-7.7) Random Glucose 121 MG/DL (74-106) Aspartate Amino Transf (AST/SGOT) 10 U/L (15-37) Total Bilirubin LESS THAN 0.1 MG/DL Last 24 hours Impressions Abdomen/Pelvis CT 12/10/17 0024 Signed Impressions: Service Date/Time: Sunday, December 10, 2017 00:42 - CONCLUSION: Normal examination. Hiram Sargent Jr., MD Renal Ultrasound [id number] Signed Impressions: Service Date/Time: Saturday, December 09, 2017 23:50 - CONCLUSION: 1. Study is somewhat limited by the patient's body habitus. No abnormality observed. Hiram Sargent Jr., MD Gall Bladder Ultrasound [id number] Signed Impressions: Service Date/Time: Saturday, December 09, 2017 23:38 - CONCLUSION: 1. Hepatic steatosis. 2. No acute abnormality. Hiram Sargent Jr., MD Differential Diagnosis Right flank and right upper quadrant abdominal pain: Pyelonephritis/UTI versus renal colic versus cholecystitis Narrative Course Lab work is fairly unremarkable and CAT scan and ultrasound did not show any signs of acute processes. At this point, my plan would be to give her symptomatic relief for pain. Patient also states that symptoms are very similar to last time she had a urinary tract infection. She is worried that this could be a UTI. Considering her symptoms, my plan would be to empirically treat her with antibiotics. However, she needs to follow-up with primary care regarding any ongoing problems. Return for any worsening in symptoms as needed. The plan has been discussed with her and she states understanding. Diagnosis Primary Impression: Abdominal pain Med/Other Pt SpecificInfo: Prescription(s) given Scripts Cyclobenzaprine (Flexeril) 10 Mg Tab 10 MG PO TID for Muscle Spasm, #12 TAB 0 Refills Prov: Marleni Purdy MD 12/10/17 Ibuprofen (Ibuprofen) 600 Mg Tab 600 MG PO Q6H Y for Pain/Inflammation, #20 TAB 0 Refills Prov: Marleni Purdy MD 12/10/17 Sulfamethoxazole-Trimethoprim (Bactrim DS) 800-160 Mg Tab 1 TAB PO BID for Infection, #20 TAB 0 Refills Prov: Marleni Purdy MD 12/10/17 Disposition: 01 DISCHARGE HOME Condition: Stable Marleni Purdy MD Dec 09, 2017 22:34
[2017-12-09 22:54] LABS: BASOPHIL # 0.2 TH/MM3 (0-0.2); BASOPHIL % 1.8 % (0.0-2.0); EOSINOPHIL # 0.4 TH/MM3 (0-0.4); EOSINOPHIL % 3.4 % (0.0-4.0); HEMATOCRIT 38.6 % (35.0-46.0); LYMPHOCYTE # 3.7 TH/MM3 (1.0-4.8); MEAN CELL VOLUME 87.8 FL (80.0-100.0); MEAN CORPUSCULAR HEMOGLOBIN 29.5 PG (27.0-34.0); MEAN CORPUSCULAR HGB CONC 33.6 % (32.0-36.0); MONO % 6.2 % (0.0-8.0); MONOCYTE # 0.8 TH/MM3 (0-0.9); NEUT % 60.6 % (16.0-70.0); PLATELET COUNT 349 TH/MM3 (150-450); RED CELL DISTRIBUTION WIDTH 14.5 % (11.6-17.2); WHITE BLOOD COUNT 13.1 TH/MM3 (4.0-11.0)
[2017-12-09 22:55] LABS: BILIRUBIN, URINE NEG (NEG); BLOOD, URINE NEG (NEG); GLUCOSE,URINE NEG (NEG); KETONE, URINE NEG (NEG); NITRITE,URINE NEG (NEG); URINE COLOR YELLOW (YELLW/STRAW); URINE LEUKOCYTE ESTERASE NEG (NEG)
[2017-12-09 23:01] LABS: CHLORIDE 104 MEQ/L (98-107); SODIUM (NA) 138 MEQ/L (136-145)
[2017-12-09 23:05] LABS: ALBUMIN 3.4 GM/DL (3.4-5.0); BICARBONATE 27.1 MEQ/L (21.0-32.0); BLOOD UREA NITROGEN 16 MG/DL (7-18); CALCIUM 8.5 MG/DL (8.5-10.1); GLUCOSE,RANDOM 121 MG/DL (74-106)
[2017-12-09 23:08] LABS: ALT (GPT) 20 U/L (10-53); AST (GOT) 10 U/L (15-37); CREATININE 0.73 MG/DL (0.50-1.00); GLOMERULAR FILTRATION RATE 91 ML/MIN (>89)
[2017-12-09 23:10] LABS: TOTAL BILIRUBIN ADULT LESS THAN 0.1 MG/DL (0.2-1.0); TOTAL PROTEIN 7.7 GM/DL (6.4-8.2)
[2017-12-09 23:11] LABS: ALKALINE PHOSPHATASE 107 U/L (45-117)
[2017-12-09 23:15] LABS: MUCUS URINE OCC /lpf (OCC); SQUAMOUS EPITHELIAL CELL URINE > 8 /hpf (0-5)
[2017-12-09 23:16] LABS: WBC, URINE 0-2 /hpf (0-5)
[2017-12-09 23:17] LABS: AMORPHOUS SEDIMENT, URINE FEW; BACTERIA, URINE OCC /hpf
--- NOTE | 2017-12-10 00:11 | RADRPT ---
EXAM DATE/TIME: 12/09/2017 23:50 [facility] COMPARISON: No previous studies available for comparison. INDICATIONS : Flank pain. MEDICAL HISTORY : Hypertension. Migraines. Afib. Asthma. Pre diabetes. Anxiety. Measles. PCOS. Pilonidal cyst. SURGICAL HISTORY : None. ENCOUNTER: Initial ACUITY: 1 day PAIN SCORE: 2/10 LOCATION: Bilateral flank MEASUREMENTS: RIGHT KIDNEY: 13.8 x 7.8 x 6.0 cm LEFT KIDNEY: 12.7 x 6.2 x 6.1 cm FINDINGS: RIGHT KIDNEY: Renal cortex is normal in thickness and echotexture. No hydronephrosis, stone, or mass. LEFT KIDNEY: Renal cortex is normal in thickness and echotexture. No hydronephrosis, stone, or mass. BLADDER: Within normal limits given the degree of distension. CONCLUSION: 1. Study is somewhat limited by the patient's body habitus. No abnormality observed. Hiram Sargent Jr., MD on December 10, 2017 at 0:09 Board Certified Radiologist. This report was verified electronically.
--- NOTE | 2017-12-10 00:20 | RADRPT ---
EXAM DATE/TIME: 12/09/2017 23:38 [facility] COMPARISON: US ABDOMEN - GALLBLADDER, November 30, 2009, 10:00. INDICATIONS : Right upper quadrant pain. MEDICAL HISTORY : Hypertension. Migraines. Afib. Asthma. Pre diabetes. Anxiety. Measles. PCOS. Pilonidal cyst. SURGICAL HISTORY : None. ENCOUNTER: Subsequent ACUITY: 1 day PAIN SCORE: 2/10 LOCATION: Right upper quadrant MEASUREMENTS: LIVER: 24.2 cm length COMMON DUCT: 6 mm RIGHT KIDNEY: 13.5 x 7.8 x 6.0 cm FINDINGS: LIVER: The liver is diffusely echogenic. No mass or ductal dilatation. Hepatopedal flow within the portal ve in. COMMON DUCT: No intraluminal mass or stone visualized. Size is stable from the prior study. GALLBLADDER: Contains no stones, demonstrates no wall thickening or pericholecystic fluid. PANCREAS: The visualized portions are within normal limits. RIGHT KIDNEY: No evidence of hydronephrosis, stone, or mass. CONCLUSION: 1. Hepatic steatosis. 2. No acute abnormality. Hiram Sargent Jr., MD on December 10, 2017 at 0:11 Board Certified Radiologist. This report was verified electronically.
[2017-12-10] MEDS ORDERED: IOHEXOL 350 MG/ML 10 ML VIAL (for RAD DIAG) IVCONTRAST ONE (00:51)
--- NOTE | 2017-12-10 00:57 | RADRPT ---
EXAM DATE/TIME: 12/10/2017 00:42 [facility] COMPARISON: No previous studies available for comparison. INDICATIONS : Right flank pain. Nausea. IV CONTRAST: 95 cc Omnipaque 350 (iohexol) IV ORAL CONTRAST: No oral contrast ingested. RADIATION DOSE: 33.56 CTDIvol (mGy) ; Patient body habitus MEDICAL HISTORY : Hypertension. Asthma. SURGICAL HISTORY : None. ENCOUNTER: Initial ACUITY: 1 day PAIN SCALE: 8/10 LOCATION: Right flank TECHNIQUE: Volumetric scanning of the abdomen and pelvis was performed. Using automated exposure control and ad justment of the mA and/or kV according to patient size, radiation dose was kept as low as reasonably achievable to obtain optimal diagnostic quality images. DICOM format image data is available electro nically for review and comparison. FINDINGS: LOWER LUNGS: The visualized lower lungs are clear. LIVER: Homogeneous density without lesion. There is no dilation of the biliary tree. No calcified gallston es. SPLEEN: Normal size without lesion. PANCREAS: Within normal limits. KIDNEYS: Normal in size and shape. There is no mass, stone or hydronephrosis. 1 cm cyst involving the upper p ole the left kidney. ADRENAL GLANDS: Within normal limits. VASCULAR: There is no aortic aneurysm. BOWEL/MESENTERY: The stomach, small bowel, and colon demonstrate no acute abnormality. There is no free intraperitone al air or fluid. ABDOMINAL WALL: Within normal limits. RETROPERITONEUM: There is no lymphadenopathy. BLADDER: No wall thickening or mass. REPRODUCTIVE: Within normal limits. INGUINAL: There is no lymphadenopathy or hernia. MUSCULOSKELETAL: Within normal limits for patient age. CONCLUSION: Normal examination. Hiram Sargent Jr., MD on December 10, 2017 at 0:54 Board Certified Radiologist. This report was verified electronically.
[2017-12-10] MEDS ORDERED: CYCL10TA PO (01:09)
[2017-12-10] MEDS ORDERED: IBUP-232 PO (01:09)
[2017-12-10] MEDS ORDERED: BACT800T5 PO (01:09)
[2017-12-10] MEDS ORDERED: traMADol HCL 50 MG TAB PO ONE (01:15)
[2017-12-10 01:37] VITALS: BP 187/89
== END 2017-12-10 01:40 | disposition home or self-care (01) ==
LOC: PHED 22:10
DX: R10.9 Unspecified abdominal pain (principal); J45.909 Unspecified asthma, uncomplicated; I48.91 Unspecified atrial fibrillation; I10 Essential (primary) hypertension; Z72.0 Tobacco use
CPT/HCPCS: 74177; 76705; 76775; 80053; 81001; 83690; 84703; 85025; 99285; Q9967

== ENCOUNTER 2018-01-04 22:44 | Emergency (ER) | payer SELFPAY ==
[~2018-01-04] VITALS: Ht 180.3 cm; Wt 195.8 kg
[~2018-01-04 22:44] MED LIST changes: -ALBUAER3 INH; +CYCL10TA PO; +IBUP-232 PO; -LISI10TA3 PO; -METO25TA3 PO; -OMEP20TA93 PO; -PRED50 PO; -PROC10TA PO; -ZITH500T PO; -ashwagandha; -tumeric
[2018-01-04 22:50] VITALS: BP 232/109; PULSE 110; RESP 20; TEMP 97.5; O2SAT 95
[2018-01-04] MEDS ORDERED: SODIUM CHLORIDE 0.9% FLUSH 10 ML FLUSH IVF PRN (23:30)
[2018-01-04] MEDS ORDERED: SODIUM CHLOR 0.9% 1000 ML INJ 1,000 ML IV ONE ×2 (23:30)
[2018-01-04] MEDS ORDERED: methylPREDNISolone SOD SUCC 125 MG/2 ML VIAL IV PUSH ONE (23:30)
[2018-01-04] MEDS: RESP: ALBUTEROL 2.5 MG/IPRATROPIUM 0.5 MG NEB (SCH) INH (23:30)
--- NOTE | 2018-01-04 23:36 | PD ---
HPI Chief Complaint: Respiratory Symptoms Time Seen by Provider: 23:11 Travel History International Travel<30 days: No Contact w/Intl Traveler<30days: No Traveled to known affect area: No History of Present Illness HPI Patient is a 37-year-old female with history of asthma, presents the emergency room with feelings of possible bronchitis. Patient reports that since yesterday , she has had a nonproductive cough, reports that she is feeling short of breath and has been wheezing. Patient denies any fevers or chills, reports no sick contacts at home. Patient is a smoker. Denies any recent travel/trips. Denies chest pain. Reports history of hypertension in the past - she was on metoprolol for her hypertension and afib - reports that her doctor stopped all her cardiac medications. PFSH Past Medical History Asthma: Yes (MILD) Atrial Fibrillation: Yes Anxiety: Yes Cancer: No Cardiovascular Problems: Yes (HTN) Diminished Hearing: No Endocrine: No Gastrointestinal Disorders: No Genitourinary: No Headaches: Yes Heparin Induced Thrombocytopen: No Hypertension: Yes Immune Disorder: No Implanted Vascular Access Dvce: No Musculoskeletal: Yes Neurologic: Yes Psychiatric: Yes Reproductive: Yes (PCOS) Respiratory: No Integumentary: Yes (PINONODAL CYST) Immunizations Current: Yes Migraines: Yes Sickle Cell Disease: No Tetanus Vaccination: > 5 Years Influenza Vaccination: No ?: Not LMP: 7 yrs ago, pt has PCOS Menopausal: Yes : 0 Past Surgical History Oral Surgery: Yes (TOOTH EXTRACTION) Other Surgery: Yes (DENTAL ) Social History Alcohol Use: Yes (Social) Tobacco Use: Yes (1 PACK PER DAY) Substance Use: No (PT DENIES) Allergies-Medications (Allergen,Severity, Reaction): Coded Allergies: amoxicillin (Verified Allergy, Severe, THROAT SWELLS, SOB, 12/09/17) clavulanic acid (Verified Allergy, Severe, THROAT SWELLS, SOB, 12/09/17) ciprofloxacin (Verified Adverse Reaction, Intermediate, Nausea/Vomiting, ) Reported Meds & Prescriptions Reported Meds & Active Scripts Active Prednisone 20 Mg Tab 20 Mg PO BID 5 Days Azithromycin 500 Mg Tab 500 Mg PO DAILY Proair Hfa 8.5 GM Inh (Albuterol Sulfate) 90 Mcg/Act Aer 2 Puff INH Q4-6H PRN 108 mcg/actuation Flexeril (Cyclobenzaprine HCl) 10 Mg Tab 10 Mg PO TID Ibuprofen 600 Mg Tab 600 Mg PO Q6H PRN Bactrim DS (Sulfamethoxazole-Trimethoprim) 800-160 Mg Tab 1 Tab PO BID Review of Systems General / Constitutional: No: Fever, Chills Eyes: No: Visual changes HENT: No: Headaches Cardiovascular: No: Chest Pain or Discomfort, Palpitations, Irregular Rhythm Respiratory: Positive: Cough, Shortness of Breath, Wheezing Gastrointestinal: No: Nausea, Vomiting, Abdominal Pain Genitourinary: No: Dysuria Musculoskeletal: No: Pain Skin: No Rash Neurologic: No: Weakness Psychiatric: No: Depression Endocrine: No: Polydipsia Hematologic/Lymphatic: No: Easy Bruising Physical Exam Narrative GENERAL: moderate distress SKIN: Focused skin assessment warm/dry. HEAD: Atraumatic. Normocephalic. EYES: Pupils equal and round. No scleral icterus. No injection or drainage. ENT: No nasal bleeding or discharge. Mucous membranes pink and moist. NECK: Trachea midline. No JVD. CARDIOVASCULAR: Tachycardia. No murmur appreciated. RESPIRATORY: No accessory muscle use. Diffuse and scattered wheezing GASTROINTESTINAL: Abdomen soft, non-tender, nondistended. Hepatic and splenic margins not palpable. MUSCULOSKELETAL: No obvious deformities. No clubbing. No cyanosis. No edema. NEUROLOGICAL: Awake and alert. No obvious cranial nerve deficits. Motor grossly within normal limits. Normal speech. PSYCHIATRIC: Appropriate mood and affect; insight and judgment normal. Data Data Last Documented VS Vital Signs Date Time Temp Pulse Resp B/P (MAP) Pulse Ox O2 Delivery O2 Flow Rate FiO2 01/04/18 23:48 99 Room Air 01/04/18 23:15 20 01/04/18 22:50 97.5 110 Orders Orders Complete Blood Count With Diff (01/04/18 23:18) Basic Metabolic Panel (Bmp) (01/04/18 23:18) Influenzae A/B Antigen (01/04/18 23:18) Iv Access Insert/Monitor (01/04/18 23:18) Ecg Monitoring (01/04/18 23:18) Oximetry (01/04/18 23:18) Chest, Pa & Lat (01/04/18 23:18) Sodium Chloride 0.9% Flush (Ns Flush) (01/04/18 23:30) Methylprednisolone So Succ Inj (Solumedr (01/04/18 23:30) Albuterol-Ipratropium Neb (Duoneb Neb) (01/04/18 23:30) Sodium Chlor 0.9% 1000 Ml Inj (Ns 1000 M (01/04/18 23:30) Sodium Chlor 0.9% 1000 Ml Inj (Ns 1000 M (01/04/18 23:30) Azithromycin (Zithromax) (01/05/18 00:15) Albuterol Hfa Inh (Proair Hfa Inh) (01/05/18 00:30) Labs Laboratory Tests Test 01/04/18 23:40 White Blood Count 6.8 TH/MM3 Red Blood Count 4.32 MIL/MM3 Hemoglobin 12.6 GM/DL Hematocrit 38.0 % Mean Corpuscular Volume 87.9 FL Mean Corpuscular Hemoglobin 29.0 PG Mean Corpuscular Hemoglobin Concent 33.0 % Red Cell Distribution Width 13.6 % Platelet Count 291 TH/MM3 Mean Platelet Volume 8.1 FL Neutrophils (%) (Auto) 55.5 % Lymphocytes (%) (Auto) 28.6 % Monocytes (%) (Auto) 11.4 % Eosinophils (%) (Auto) 3.6 % Basophils (%) (Auto) 0.9 % Neutrophils # (Auto) 3.7 TH/MM3 Lymphocytes # (Auto) 2.0 TH/MM3 Monocytes # (Auto) 0.8 TH/MM3 Eosinophils # (Auto) 0.2 TH/MM3 Basophils # (Auto) 0.1 TH/MM3 CBC Comment DIFF FINAL Differential Comment Blood Urea Nitrogen 15 MG/DL Creatinine 0.81 MG/DL Random Glucose 163 MG/DL Calcium Level 8.5 MG/DL Sodium Level 139 MEQ/L Potassium Level 4.1 MEQ/L Chloride Level 105 MEQ/L Carbon Dioxide Level 27.3 MEQ/L Anion Gap 7 MEQ/L Estimat Glomerular Filtration Rate 80 ML/MIN [facility] [place] Medical Decision Making Medical Screen Exam Complete: Yes Emergency Medical Condition: Yes Medical Record Reviewed: Yes Interpretation(s) Vital Signs Date Time Temp Pulse Resp B/P (MAP) Pulse Ox O2 Delivery O2 Flow Rate FiO2 01/04/18 23:15 20 95 Room Air 01/04/18 22:50 97.5 110 20 232/109 (150) 95 Differential Diagnosis Bronchitis, pneumonia, asthma exacerbation, electrolyte abnormality Narrative Course 37 year old female who presents to the ER with c/o of asthma exacerbation. She has been symptomatic since yesterday, reports that symptoms have progressed and worsened tonight. She does not have a rescue inhaler as it has been "a while" since her last asthma attack. During the course of the patients emergency department visit, the patients history, examination, and differential diagnosis were reviewed with the patient. The patient was placed on a security monitor with oximetry and frequent blood pressure monitoring. The patient had an IV access obtained and blood work sent for analysis. Blood pressure is elevated today, patient denies any headache/dizzyness. She currently is not on any antihypertensives. Patient understands importance of following up with a pcp for blood pressure monitoring and control. Patient endorses that her blood pressure is always high when she is sick. The patient was initially provided IVF, IV Solumedrol, duoneb treatments The patients laboratory studies were reviewed and remarkable for: CBC & BMP Diagram 01/04/18 23:40 Calcium Level 8.5 Radiology studies were reviewed and remarkable for: Last Impressions Chest X-Ray 01/04/18 7309 Signed Impressions: Service Date/Time: Thursday, January 04, 2018 23:21 - CONCLUSION: No acute cardiopulmonary disease identified. Avery Linda MD Patient re-evaluated, patient feeling much better. Patient with most likely asthmatic bronchitis. Plan to treat with steroids, albuterol as well as antibiotics. Patient understands importance of following up with pcp for re- evaluation of blood pressure. Signs and symptoms of when to return to the ER was reviewed with patient in detail. Diagnosis Primary Impression: Asthma exacerbation Qualified Codes: J45.901 - Unspecified asthma with (acute) exacerbation Additional Impression: Hypertension Qualified Codes: I10 - Essential (primary) hypertension Referrals: [facility] Patient Instructions: General Instructions Additional Instructions: Please provide patient with a copy of their lab work and studies at discharge* * Please follow up with your primary care doctor in 2-3 days Return to the ER if symptoms worsen or progress Return to the ER as needed You will need to follow up with your primary care doctor for blood pressure rechecks. Med/Other Pt SpecificInfo: Prescription(s) given Scripts Prednisone (Prednisone) 20 Mg Tab 20 MG PO BID for 5 Days, #10 TAB 0 Refills Prov: Soledad Hernández DO 01/05/18 Azithromycin (Azithromycin) 500 Mg Tab 500 MG PO DAILY for Infection, #5 TAB 0 Refills Prov: Soledad Hernández DO 01/05/18 Albuterol 8.5 GM Inh (Proair Hfa 8.5 GM Inh) 90 Mcg/Act Aer 2 PUFF INH Q4-6H Y for SHORTNESS OF BREATH, #1 INHALER 0 Refills 108 mcg/actuation Prov: Soledad Hernández DO 01/05/18 Disposition: 01 DISCHARGE HOME Condition: Stable Soledad Hernández DO Jan 04, 2018 23:36
[2018-01-04 23:48] VITALS: O2SAT 99
[2018-01-04 23:55] LABS: AUTOMATED NEUTROPHIL # 3.7 TH/MM3 (1.8-7.7); BASOPHIL # 0.1 TH/MM3 (0-0.2); BASOPHIL % 0.9 % (0.0-2.0); EOSINOPHIL # 0.2 TH/MM3 (0-0.4); EOSINOPHIL % 3.6 % (0.0-4.0); HEMOGLOBIN 12.6 GM/DL (11.6-15.3); LYMPH % 28.6 % (9.0-44.0); MEAN CELL VOLUME 87.9 FL (80.0-100.0); MEAN PLATELET VOLUME 8.1 FL (7.0-11.0); MONO % 11.4 % (0.0-8.0); MONOCYTE # 0.8 TH/MM3 (0-0.9); NEUT % 55.5 % (16.0-70.0); PLATELET COUNT 291 TH/MM3 (150-450); RED BLOOD COUNT 4.32 MIL/MM3 (4.00-5.30); RED CELL DISTRIBUTION WIDTH 13.6 % (11.6-17.2); WHITE BLOOD COUNT 6.8 TH/MM3 (4.0-11.0)
--- NOTE | 2018-01-05 00:02 | RADRPT ---
EXAM DATE/TIME: 01/04/2018 23:21 [place] COMPARISON: CHEST PA & LAT, October 14, 2017, 20:40. INDICATIONS : Cough and short of breath. MEDICAL HISTORY : Asthma. Bronchitis. SURGICAL HISTORY : None. ENCOUNTER: Initial ACUITY: 1 day PAIN SCORE: 0/10 LOCATION: Bilateral chest FINDINGS: PA and lateral views of the chest. Lungs are clear. Cardiomediastinal silhouette within normal limits . No evidence of pleural effusion or pneumothorax. CONCLUSION: No acute cardiopulmonary disease identified. Avery Linda MD on January 04, 2018 at 23:58 Board Certified Radiologist. This report was verified electronically.
[2018-01-05 00:03] LABS: CALCIUM 8.5 MG/DL (8.5-10.1)
[2018-01-05 00:04] LABS: BICARBONATE 27.3 MEQ/L (21.0-32.0)
[2018-01-05 00:07] LABS: CREATININE 0.81 MG/DL (0.50-1.00)
[2018-01-05] MEDS ORDERED: AZITHROMYCIN 250 MG TAB PO ONE (00:15)
[2018-01-05] MEDS ORDERED: ALBUAER3 INH (00:20)
[2018-01-05] MEDS ORDERED: PRED20 PO (00:20)
[2018-01-05] MEDS ORDERED: AZIT500T2 PO (00:20)
[2018-01-05] MEDS ORDERED: ALBUTEROL SULFATE 90 MCG/ACT HFA 8 GM INHALER INH ONE (00:30)
[2018-01-05 00:33] VITALS: BP 188/107; PULSE 114; RESP 20; O2SAT 95
[2018-01-05 01:43] VITALS: BP 185/92
== END 2018-01-05 01:46 | disposition home or self-care (01) ==
LOC: PHED 22:44
DX: J45.901 Unspecified asthma with (acute) exacerbation (principal); I10 Essential (primary) hypertension; R00.0 Tachycardia, unspecified; I48.91 Unspecified atrial fibrillation; F41.9 Anxiety disorder, unspecified; F17.200 Nicotine dependence, unspecified, uncomplicated; Z79.899 Other long term (current) drug therapy; Z88.0 Allergy status to penicillin; Z88.1 Allergy status to other antibiotic agents
CPT/HCPCS: 71046; 80048; 85025; 87804; 94640; 94664; 96361; 96374; 99284; J2930; J7030

== ENCOUNTER 2018-07-29 15:32 | Observation (INO) ==
[~2018-07-29 15:32] MED LIST changes: -BACT800T5 PO; -CYCL10TA PO; -IBUP-232 PO; +Regadenoson Inj 0.4 MG/5 ML Syringe IV.PUSH ONE
[2018-07-29] MEDS ORDERED: Sod Chloride 0.9% Inj 1,000 ML IV.SIG ONE (16:02)
[2018-07-29 16:17] LABS: Baso # (Auto) 0.1 th/mm3 (0.0-0.2); Baso % (Auto) 1.1 % (0.0-2.0); Eos # (Auto) 0.2 th/mm3 (0.0-0.4); Eos % (Auto) 1.6 % (0.0-4.0); Hematocrit 39.3 % (35.0-46.0); Hemoglobin 13.2 gm/dL (11.6-15.3); Lymph # (Auto) 2.5 th/mm3 (1.0-4.8); Lymph % (Auto) 20.4 % (9.0-44.0); Mean Corpuscular HGB Conc 33.6 % (32.0-36.0); Mean Corpuscular Hemoglobin 29.8 pg (27.0-34.0); Mean Corpuscular Volume 88.5 fL (80.0-100.0); Mean Platelet Volume 8.4 fL (7.0-11.0); Mono # (Auto) 0.8 th/mm3 (0.0-0.9); Mono % (Auto) 6.3 % (0.0-8.0); Neut # (Auto) 8.8 th/mm3 (1.8-7.7); Neut % (Auto) 70.6 % (16.0-70.0); Platelet Count 355 th/mm3 (150-450); Red Blood Count 4.44 mil/mm3 (4.00-5.30); Red Cell Distribution Width 13.6 % (11.6-17.2); White Blood Count 12.4 th/mm3 (4.0-11.0)
--- NOTE | 2018-07-29 16:25 | ED ---
HPI General Chief complaint: Dizziness Stated complaint: L side arm numbness/dizziness/abd pain Time Seen by Provider: 07/29/18 15:42 Source: patient Mode of arrival: ambulatory Limitations: no limitations History of Present Illness HPI narrative: 38-year-old female with history of hypertension, PCOS, fibromyalgia, here for evaluation of dizziness, generalized malaise, left arm ache and numbness. Patient reports that for the last 2 days she has been having intermittent episodes of dizziness that appear worse with change in position. She feels as though the room is spinning around her. Today while at work she noticed an ache in her chest which was substernal and resolved. This was followed by an ache down her left arm and a numbness sensation in her left arm. No focal motor deficits or weakness. No headache, although the patient does have chronic headaches and is in a study for this. No neck pain. No fevers or chills. No abdominal pain. She does feel nauseous but has not vomited. No diarrhea. No dyspnea. No known history of cardiopulmonary disease. No history of DVT or PE. No recent travel or immobilization. No dysuria or increased urinary frequency. Related Data Home Medications Medication Instructions Recorded Confirmed cyclobenzaprine 10 mg PO DIRECTED PRN 07/29/18 07/29/18 Previous Rx's Medication Instructions Recorded carisoprodol [Soma] 350 mg PO QID PRN #20 tab 07/13/18 hydrocodone-acetaminophen 1 tab PO Q6H PRN #10 tab 07/13/18 lisinopril-hydrochlorothiazide 1 tab PO DAILY #30 tab 07/13/18 [Zestoretic] Allergies Allergy/AdvReac Type Severity Reaction Status Date / Time amoxicillin Allergy Severe THROAT Verified 07/29/18 15:48 SWELLS, SOB clavulanic acid Allergy Severe THROAT Verified 07/29/18 15:48 SWELLS, SOB ciprofloxacin AdvReac Intermediate Nausea/Vomi Verified 07/29/18 15:48 ting Review of Systems ROS: all other systems reviewed are negative [facility] Social History Social History Substance History: No History of Abuse Second Hand Smoke Exposure: No Smoking Status: Current every day smoker Tobacco Type: Cigarettes How Often Do You Have a Drink Containing Alcohol: 2 to 4 times a month Recent Out of Country Travel within the Last 8 Weeks: No Immunization History Tetanus Immunization: Unsure Exam Narrative Exam Narrative: GENERAL: Well-developed, well-nourished, overweight, awake, alert, no apparent distress. SKIN: Focused skin assessment warm/diaphoretic. No rash. HEAD: Atraumatic. Normocephalic. EYES: Pupils equal, round, 3 mm, reactive to light. EOMI. No scleral icterus. No injection or drainage. ENT: Mucous membranes pink and dry. Bilateral tympanic membrane's and external auditory canals are normal. NECK: Trachea midline. No JVD. CARDIOVASCULAR: Tachycardic, rate 115, regular. RESPIRATORY: No accessory muscle use. Clear to auscultation. Breath sounds equal bilaterally. GASTROINTESTINAL: Abdomen soft, non-tender, nondistended. MUSCULOSKELETAL: No obvious deformities. No clubbing. No cyanosis. No edema. NEUROLOGICAL: Awake and alert. No obvious cranial nerve deficits. Motor grossly within normal limits. Normal speech. Normal [id number] test bilaterally. No pronator drift. No focal deficits. Normal muscle strength in all 4 extremities. PSYCHIATRIC: Appropriate mood and affect; insight and judgment normal. Course Initial Documented Vital Signs Temperature 98 F 07/29/18 15:45 Pulse Rate 118 H 07/29/18 15:45 Respiratory Rate 18 07/29/18 15:45 Blood Pressure 113/76 07/29/18 15:45 Pulse Oximetry 96 07/29/18 15:45 Last Documented Vital Signs Temperature 98 F 07/29/18 15:45 Pulse Rate 99 H 07/29/18 19:28 Respiratory Rate 20 07/29/18 19:28 Blood Pressure 144/80 H 07/29/18 19:28 Pulse Oximetry 96 07/29/18 19:28 Medical Decision Making [facility] Narrative Medical decision making narrative: Vital signs reviewed and are remarkable for tachycardia with a heart rate between 110 and 120, sinus. CBC is essentially unremarkable. CMP is remarkable for random glucose 169. Cardiac enzymes are negative. D-dimer is slightly elevated at 1.07 Chest x-ray read as stable appearance with no acute cardiopulmonary disease. CT head read as negative noncontrast head CT. CT cervical spine: CONCLUSION: 1. Reversal of normal cervical lordosis which could be due to muscular spasm and/or positioning. 2. Suboptimal study due to diffuse streak artifact. No gross protrusion is identified. UA Because d-dimer slightly elevated, CT pulmonary angiogram ordered to rule out PE. CT pulmonary angiogram is negative for PE. While in the emergency department the patient had occasional episodes of substernal chest discomfort that radiated to her neck and left shoulder. This occurred while at rest on the stretcher and lasted for several seconds at a time. She does have several cardiac risk factors including obesity, tobaccoism , hypertension, hyperglycemia. She will be given a full aspirin and admitted to the chest pain center for further cardiac evaluation. Her symptoms of dizziness and left arm numbness have otherwise improved while in the emergency department. She is amenable to this plan. Case discussed with hospitalist Dr. Luz who will admit the patient to the hospitalist service. Medical Screen Exam Complete: Yes Emergency Medical Condition: Yes Differential Diagnosis Differential Diagnosis: CVA/TIA, vertigo, intracranial abnormality, sepsis, dehydration, UTI, metabolic abnormality, ACS, PE Lab Data Result diagrams: 07/29/18 16:05 07/29/18 16:05 POC Results POC Urine Results Negative Lab Results 07/29/18 07/29/18 07/29/18 Range/Units 16:05 16:05 16:05 CBC w Diff Auto diff final WBC 12.4 H (4.0-11.0) th/mm3 RBC 4.44 (4.00-5.30) mil/mm3 Hgb 13.2 (11.6-15.3) gm/dL Hct 39.3 (35.0-46.0) % MCV 88.5 (80.0-100.0) fL MCH 29.8 (27.0-34.0) pg MCHC 33.6 (32.0-36.0) % RDW 13.6 (11.6-17.2) % Plt Count 355 (150-450) th/mm3 MPV 8.4 (7.0-11.0) fL Neut % (Auto) 70.6 H (16.0-70.0) % Lymph % (Auto) 20.4 (9.0-44.0) % Glenn % (Auto) 6.3 (0.0-8.0) % Eos % (Auto) 1.6 (0.0-4.0) % Baso % (Auto) 1.1 (0.0-2.0) % Neut # (Auto) 8.8 H (1.8-7.7) th/mm3 Lymph # (Auto) 2.5 (1.0-4.8) th/mm3 Glenn # (Auto) 0.8 (0.0-0.9) th/mm3 Eos # (Auto) 0.2 (0.0-0.4) th/mm3 Baso # (Auto) 0.1 (0.0-0.2) th/mm3 WBC Differential . Differential Comment . PT 10.6 (9.8-11.6) sec INR 1.0 Ratio D-Dimer Quant (PE/DVT) 1.07 H (0.00-0.50) mg/L FEU Sodium 136 (136-145) meq/L Potassium 3.6 (3.5-5.1) meq/L Chloride 101 (98-107) meq/L Carbon Dioxide 28.5 (21.0-32.0) meq/L Anion Gap 7 (5-15) meq/L BUN 17 (7-18) mg/dL Creatinine 0.91 (0.50-1.00) mg/dL Estimated GFR 70 L (>89) mL/min Random Glucose 169 H (74-106) mg/dL Lactic Acid (0.4-2.0) mmol/L Calcium 8.5 (8.5-10.1) mg/dL Total Bilirubin 0.2 (0.2-1.0) mg/dL AST 10 L (15-37) U/L ALT 26 (10-53) U/L Alkaline Phosphatase 99 (45-117) U/L Total Creatine Kinase 83 (26-192) U/L Troponin I Less than 0.02 L (0.02-0.05) ng/mL Total Protein 7.7 (6.4-8.2) g/dL Albumin 3.4 (3.4-5.0) g/dL TSH 1.400 (0.358-3.740) uIU/mL Urine Color (Yellw/Straw) Urine Clarity (Clear) Urine pH (5.0-8.5) Ur Specific [place] (1.002-1.035) Urine Protein (Neg-Trace) mg/dL Urine Glucose (UA) (Negative) mg/dL Urine Ketones (Negative) mg/dL Urine Occult Blood (Negative) Urine Nitrate (Negative) Urine Bilirubin (Negative) Urine Urobilinogen (Less than 2) mg/dL Ur Leukocyte Esterase (Negative) Urine RBC (0-3) /hpf Urine WBC (0-5) /hpf Ur Squamous Epith Cells (0-5) /hpf Urine Bacteria (None) /hpf Urine Mucus (Occasional) /lpf Micro UA Comment Ur Microscopic Review 07/29/18 07/29/18 Range/Units 16:05 17:00 CBC w Diff WBC (4.0-11.0) th/mm3 RBC (4.00-5.30) mil/mm3 Hgb (11.6-15.3) gm/dL Hct (35.0-46.0) % MCV (80.0-100.0) fL MCH (27.0-34.0) pg MCHC (32.0-36.0) % RDW (11.6-17.2) % Plt Count (150-450) th/mm3 MPV (7.0-11.0) fL Neut % (Auto) (16.0-70.0) % Lymph % (Auto) (9.0-44.0) % Glenn % (Auto) (0.0-8.0) % Eos % (Auto) (0.0-4.0) % Baso % (Auto) (0.0-2.0) % Neut # (Auto) (1.8-7.7) th/mm3 Lymph # (Auto) (1.0-4.8) th/mm3 Glenn # (Auto) (0.0-0.9) th/mm3 Eos # (Auto) (0.0-0.4) th/mm3 Baso # (Auto) (0.0-0.2) th/mm3 WBC Differential Differential Comment PT (9.8-11.6) sec INR Ratio D-Dimer Quant (PE/DVT) (0.00-0.50) mg/L FEU Sodium (136-145) meq/L Potassium (3.5-5.1) meq/L Chloride (98-107) meq/L Carbon Dioxide (21.0-32.0) meq/L Anion Gap (5-15) meq/L BUN (7-18) mg/dL Creatinine (0.50-1.00) mg/dL Estimated GFR (>89) mL/min Random Glucose (74-106) mg/dL Lactic Acid 1.5 (0.4-2.0) mmol/L Calcium (8.5-10.1) mg/dL Total Bilirubin (0.2-1.0) mg/dL AST (15-37) U/L ALT (10-53) U/L Alkaline Phosphatase (45-117) U/L Total Creatine Kinase (26-192) U/L Troponin I (0.02-0.05) ng/mL Total Protein (6.4-8.2) g/dL Albumin (3.4-5.0) g/dL TSH (0.358-3.740) uIU/mL Urine Color Yellow (Yellw/Straw) Urine Clarity Clear (Clear) Urine pH 6.0 (5.0-8.5) Ur Specific [place] 1.025 (1.002-1.035) Urine Protein Negative (Neg-Trace) mg/dL Urine Glucose (UA) Negative (Negative) mg/dL Urine Ketones Trace H (Negative) mg/dL Urine Occult Blood Negative (Negative) Urine Nitrate Negative (Negative) Urine Bilirubin Negative (Negative) Urine Urobilinogen 0.2 (Less than 2) mg/dL Ur Leukocyte Esterase Negative (Negative) Urine RBC 0-3 (0-3) /hpf Urine WBC 0-5 (0-5) /hpf Ur Squamous Epith Cells 6-10 H (0-5) /hpf Urine Bacteria Few H (None) /hpf Urine Mucus Few H (Occasional) /lpf Micro UA Comment Culture not ind Ur Microscopic Review Microscopic reviewed Imaging Data Radiologist's impression: Chest X-Ray 07/29/18 16:02 CONCLUSION: Stable appearance with no acute pulmonary disease. Head CT 07/29/18 16:02 CONCLUSION: 1. Negative CT Head non contrast. . Cervical Spine CT 07/29/18 16:05 CONCLUSION: 1. Reversal of normal cervical lordosis which could be due to muscular spasm and/or positioning. 2. Suboptimal study due to diffuse streak artifact. No gross protrusion is identified. Chest CTA 07/29/18 16:53 CONCLUSION: 1. No acute findings. Negative for pulmonary embolus. ECG Data Attestation: I personally reviewed and interpreted this ECG as follows: (Sinus tachycardia, rate 109, normal axis, normal intervals, no acute ischemic abnormality, unchanged from prior.) Discharge Plan Discharge Disposition Patient Disposition: 30 Still Patient Discharge Condition Condition: Stable Discharge Details Diagnosis: Dizziness, Chest pain Physicians Team ED Provider: Amrik Tyson Primary Care Provider: Primary Care Ashley Caldwell Rxs /Orders / Referrals /Forms Prescriptions: No Action carisoprodol [Soma] 350 mg tablet 350 mg PO QID PRN (Reason: muscle pain) Qty: 20 RF: 0 lisinopril-hydrochlorothiazide [Zestoretic] 20-12.5 mg tablet 1 tab PO DAILY Qty: 30 RF: 0 hydrocodone-acetaminophen 5-325 mg tablet 1 tab PO Q6H PRN (Reason: pain) Qty: 10 RF: 0 cyclobenzaprine 10 mg Tablet 10 mg PO DIRECTED PRN (Reason: Spasms) RF: 0 Status ED Status: With Doctor
[2018-07-29 16:29] LABS: Chloride 101 meq/L (98-107); Potassium 3.6 meq/L (3.5-5.1); Sodium 136 meq/L (136-145)
--- NOTE | 2018-07-29 16:30 | XR ---
EXAM DATE: 07/29/2018 4:24 PM EDT AGE/SEX: 38 years / Female INDICATIONS: Left side chest pain with left arm numbness. CLINICAL DATA: This is the patient's initial encounter. Patient reports that signs and symptoms have been present for 1 day and indicates a pain score of 4/10. MEDICAL/SURGICAL HISTORY: None. None. COMPARISON: [facility], CHEST 1V SINGLE AP, 04/26/2018. . FINDINGS: A single AP view of the chest demonstrates the lungs to be symmetrically aerated without evidence of mass, infiltrate or effusion. The heart size is at the upper limits of normal. Osseous structures ar e intact. CONCLUSION: Stable appearance with no acute pulmonary disease. Electronically signed by: Jagdish Toth MD 07/29/2018 4:29 PM EDT
[2018-07-29 16:32] LABS: Calcium 8.5 mg/dL (8.5-10.1)
[2018-07-29 16:33] LABS: Albumin 3.4 g/dL (3.4-5.0); Anion Gap 7 meq/L (5-15); Blood Urea Nitrogen 17 mg/dL (7-18); Carbon Dioxide 28.5 meq/L (21.0-32.0); Glucose,Random 169 mg/dL (74-106)
[2018-07-29 16:36] LABS: Alanine Aminotransferase 26 U/L (10-53); Aspartate Aminotransferase 10 U/L (15-37); Glomerular Filtration Rate 70 mL/min (>89)
[2018-07-29 16:38] LABS: Total Protein 7.7 g/dL (6.4-8.2)
[2018-07-29 16:39] LABS: Alkaline Phosphatase 99 U/L (45-117)
[2018-07-29 16:42] LABS: Prothrombin Time 10.6 sec (9.8-11.6)
--- NOTE | 2018-07-29 16:46 | CT ---
EXAM DATE: 07/29/2018 4:42 PM EDT AGE/SEX: 38 years / Female INDICATIONS: Dizziness and left upper extremity numbness. CLINICAL DATA: This is the patient's initial encounter. Patient reports that signs and symptoms have been present for 1 week and indicates a pain score of 0/10. MEDICAL/SURGICAL HISTORY: . Atrial fibrillation. Pineal cyst. None. RADIATION DOSE: 59.56 CTDI (mGy) COMPARISON: No prior exams available for comparison. TECHNIQUE: CT of the head without contrast. Using automated exposure control and adjustment of the mA and/or kV according to patient size, radiation dose was kept as low as reasonably achievable to ob tain optimal diagnostic quality images. DICOM format image data is available electronically for revi ew and comparison. FINDINGS: Cerebrum: The ventricles are normal for age. No evidence of midline shift, mass lesion, hemorrhage or acute infarction. No extraaxial fluid collections are seen. Posterior Fossa: The cerebellum and brainstem are intact. The 4th ventricle is midline. The cerebe llopontine angle is unremarkable. Extracranial: The visualized portion of the orbits is intact. Skull: The calvaria is intact. No evidence of skull fracture. CONCLUSION: 1. Negative CT Head non contrast. . Electronically signed by: Kt Jarrell MD 07/29/2018 4:45 PM EDT
[2018-07-29 16:47] LABS: Creatine Kinase 83 U/L (26-192); D-Dimer 1.07 mg/L FEU (0.00-0.50)
--- NOTE | 2018-07-29 16:49 | CT ---
EXAM DATE: 07/29/2018 4:45 PM EDT AGE/SEX: 38 years / Female INDICATIONS: Dizziness and left upper extremity numbness. CLINICAL DATA: This is the patient's initial encounter. Patient reports that signs and symptoms have been present for 1 week and indicates a pain score of 0/10. MEDICAL/SURGICAL HISTORY: . Atrial fibrillation. Pineal cyst. None. RADIATION DOSE: 32.15 CTDI (mGy) ; Patient body habitus COMPARISON: No prior exams available for comparison. TECHNIQUE: Contiguous axial images were obtained using helical multirow detector technique. The vol umetric data was post-processed with multiplanar reconstruction in oblique axial, sagittal, and coron al planes. Using automated exposure control and adjustment of the mA and/or kV according to patient s ize, radiation dose was kept as low as reasonably achievable to obtain optimal diagnostic quality milind ges. DICOM format image data is available electronically for review and comparison. FINDINGS: Vertebrae: Normal vertebral body height. There is mild reversal of the normal cervical lordosis. Discs: Disc space heights are preserved. Alignment: Normal. No subluxation. There is diffuse streak artifact limiting the sensitivity of the exam with poor delineation of the th ecal sac and cord. No gross protrusion is identified. The neural foramina appear patent. There are no underlying bony abnormalities. CONCLUSION: 1. Reversal of normal cervical lordosis which could be due to muscular spasm and/or positioning. 2. Suboptimal study due to diffuse streak artifact. No gross protrusion is identified. Electronically signed by: Jagdish Toth MD 07/29/2018 4:48 PM EDT
[2018-07-29 17:19] LABS: Bilirubin,Urine Negative (Negative); Clarity,Urine Clear (Clear); Color,Urine Yellow (Yellw/Straw); Glucose,Urine (UA) Negative (Negative); Leukocyte Esterase,Urine Negative (Negative); Nitrite,Urine Negative (Negative); Specific Gravity,Urine 1.025 (1.002-1.035); Urobilinogen,Urine 0.2 mg/dL (Less than 2)
[2018-07-29 17:30] LABS: Bacteria,Urine Few /hpf; Mucus,Urine Few /lpf (Occasional); RBC,Urine 0-3 /hpf (0-3); WBC,Urine 0-5 /hpf (0-5)
--- NOTE | 2018-07-29 19:30 | CT ---
EXAM DATE: 07/29/2018 7:18 PM EDT AGE/SEX: 38 years / Female INDICATIONS: Evaluate for embolism. CLINICAL DATA: This is the patient's initial encounter. Patient reports that signs and symptoms have been present for 1 day and indicates a pain score of 0/10. MEDICAL/SURGICAL HISTORY: None. None. RADIATION DOSE: 21.56 CTDI (mGy) ; Patient body habitus COMPARISON: No prior exams available for comparison. TECHNIQUE: Volumetric scanning was performed using a multi-row detector CT scanner during bolus infu dontrell of 75 ml Omnipaque 350 (iohexol) nonionic water-soluble contrast as a single exam dose. The nuris a was post processed with a variety of visualization algorithms including full volume maximum intensi ty projection and sliding thin slab reformation. Using automated exposure control and adjustment of the mA and/or kV according to patient size, radiation dose was kept as low as reasonably achievable t o obtain optimal diagnostic quality images. DICOM format image data is available electronically for review and comparison. FINDINGS: No filling defects identified to suggest pulmonary embolic disease. There is no hilar, mediastinal or axillary adenopathy. No lung consolidation. There is no pleural or pericardial effusion. No acute fi ndings in the upper abdomen. CONCLUSION: 1. No acute findings. Negative for pulmonary embolus. Electronically signed by: Carlos Driver MD 07/29/2018 7:29 PM EDT
[2018-07-29 21:19] LABS: Creatine Kinase 76 U/L (26-192)
[2018-07-30 01:13] LABS: Creatine Kinase 106 U/L (26-192)
--- NOTE | 2018-07-30 08:07 | P.HP ---
History of Present Illness Primary Care Physician: No Primary Care Physician Chief Complaint: chest pain History of Present Illness: This is a 38-year-old female patient with a known medical history of hypertension, fibromyalgia and PCOS who presented to the ED with complaints of dizziness, general malaise and left arm numbness. Patient states that over the last 2 days she is been having intermittent episodes of dizziness that appear to be worse with position, she also states that she is been having headaches and left arm numbness that intermittently come and go. Patient denies a history of any vertigo. She denies any actual chest pain. She does state that she was started on a new blood pressure medication roughly 1 week ago and since that time she has not felt herself. She has been started on lisinopril/ hydrochlorothiazide for high blood pressure, has not been previously diagnosed with hypertension prior to this. She denies any recent illness including fever , chills, cough, shortness of breath, dumping, nausea, vomiting, diarrhea or dysuria. This test in the past. She does admit to tobacco abuse, smokes 1 pack /day of cigarettes since her teen years. Family history significant for [place] with her father at the age of 55. She is overweight and obese. She does state that her doctor checked her lipid panel and it was unremarkable per patient. At the time of assessment patient is lying in bed comfortably in no apparent distress, she denies any chest pain or continue left arm numbness. She does complain of slight headache. A CTA was done in the ED which was negative for PE. ACS ruled out with cardiac enzymes and troponins. Patient does not currently have a primary care physician. With her increased risk factors for cardiac disease, patient will undergo a cardiac stress test to further rule out any ischemia. - Diagnosis (1) Dizziness (2) Chest pain Review of Systems All other systems reviewed negative except as stated in HPI PMFSH - History History Provided By: Patient - Medical History Medical History: Medical History (Last Reviewed 07/30/18 @ 08:06 by Vivian Morales) Afib Fibromyalgia History of migraine headaches History of pineal cyst PCOS (polycystic ovarian syndrome) - Surgical History Surgical History: Surgical History (Last Reviewed 07/30/18 @ 08:06 by Vivian Morales) History of dental surgery - Family History Family History: Family History (Last Updated 07/30/18 @ 11:33 by Vivian Morales) Other Cardiovascular disease - Social History I have reviewed the patient's Social History: Yes - Tobacco History Second Hand Smoke Exposure: Yes Tobacco Use In Past 30 Days: Yes Smoking Status: Current every day smoker Tobacco Type: Cigarettes - Alcohol History How Often Do You Have a Drink Containing Alcohol: Monthly or less - Substance Use History Substance History: No History of Abuse - Travel History Recent Travel Out of the Country Within the Last 8 Weeks: No - Immunization History Tetanus Immunization: Unsure Medications and Allergies Active Medications: Active Medications Aspirin (Ecotrin) 81 mg PO DAILY CORIN Sodium Chloride (Ns Flush) 2 ml IV.FLUSH BID CORIN Last Admin: 07/30/18 00:50 Dose: 2 ml Sodium Chloride (Ns Flush) 2 ml IV.FLUSH PRN PRN PRN Reason: FLUSH AFTER USING IV ACCESS Allergies Allergy/AdvReac Type Severity Reaction Status Date / Time amoxicillin Allergy Severe THROAT Verified 07/29/18 15:48 SWELLS, SOB clavulanic acid Allergy Severe THROAT Verified 07/29/18 15:48 SWELLS, SOB ciprofloxacin AdvReac Intermediate Nausea/Vomi Verified 07/29/18 15:48 ting Home Medications Medication Instructions Recorded Confirmed Type cyclobenzaprine 10 mg PO DIRECTED PRN 07/29/18 07/29/18 History Exam Vital signs: Vital Signs 07/29/18 15:45 07/29/18 15:47 07/29/18 19:28 Temperature 98 F Pulse Rate 118 H 108 H 99 H Respiratory Rate 18 18 20 Blood Pressure 113/76 128/73 144/80 H Pulse Oximetry 96 96 96 07/29/18 20:05 07/29/18 21:00 07/29/18 21:46 Temperature 97.1 F L Pulse Rate 96 H 94 H 88 Respiratory Rate 20 18 Blood Pressure 156/73 H 116/68 Pulse Oximetry 95 07/29/18 23:09 07/30/18 00:00 07/30/18 04:00 Temperature 96.5 F L 97.4 F L Pulse Rate 99 H 104 H Respiratory Rate 18 18 Blood Pressure 132/64 121/62 Pulse Oximetry 95 95 94 L 07/30/18 05:51 Temperature Pulse Rate 114 H Respiratory Rate Blood Pressure Pulse Oximetry Intake & Output 07/29/18 07/30/18 07/30/18 18:59 06:59 18:59 Intake Total 1000 / 1000 300 / 300 Output Total 1500 / 1500 Balance 1000 / 1000 -1200 / -1200 Weight 200 kg 181.4 kg Intake: IV 1000 / 1000 NS Inj 1,000 ML @ Wide Open IV. 1000 / 1000 SIG BOLUS ONE Rx#:[id number] Oral 300 / 300 Output: Urine 1500 / 1500 Other: # Voids 1 Date of Last Bowel Movement 07/29/18 Weight On Admission 200 kg Narrative: GENERAL: Well-developed, well-nourished obese patient in [place]. Lying in bed comfortably no apparent distress. SKIN: Warm and dry. No rash. HEAD: Normocephalic. Atraumatic. EYES: Pupils equal and round. No scleral icterus. No injection or drainage. ENT: No nasal bleeding or discharge. Mucous membranes pink and moist. NECK: Supple. Trachea midline. CARDIOVASCULAR: Regular rate and rhythm. S1, S2 noted. No murmur appreciated. No reproducible chest pain to palpation. RESPIRATORY: No accessory muscle use. Clear to auscultation. Breath sounds equal bilaterally. GASTROINTESTINAL: Abdomen soft, non-tender, nondistended. Normoactive bowel sounds x4. MUSCULOSKELETAL: No obvious deformities. Extremities without clubbing, cyanosis. Bilateral lower extremity edema, 1+. NEUROLOGICAL: Awake and alert. No obvious cranial nerve deficits. Motor grossly within normal limits. 5/5 muscle strength in bilateral upper and lower extremities. Normal speech. PSYCHIATRIC: Appropriate mood and affect; insight and judgment normal. Results - Labs CBC & Chem 7: 07/29/18 16:05 07/29/18 16:05 Labs: Laboratory Results - last 24 hr 07/29/18 07/29/18 07/29/18 16:05 16:05 16:05 CBC w Diff Auto diff final WBC 12.4 H RBC 4.44 Hgb 13.2 Hct 39.3 MCV 88.5 MCH 29.8 MCHC 33.6 RDW 13.6 Plt Count 355 MPV 8.4 Neut % (Auto) 70.6 H Lymph % (Auto) 20.4 [place] % (Auto) 6.3 Eos % (Auto) 1.6 Baso % (Auto) 1.1 Neut # (Auto) 8.8 H Lymph # (Auto) 2.5 [place] # (Auto) 0.8 Eos # (Auto) 0.2 Baso # (Auto) 0.1 WBC Differential . Differential Comment . PT 10.6 INR 1.0 D-Dimer Quant (PE/DVT) 1.07 H Sodium 136 Potassium 3.6 Chloride 101 Carbon Dioxide 28.5 Anion Gap 7 BUN 17 Creatinine 0.91 Estimated GFR 70 L Random Glucose 169 H Lactic Acid Calcium 8.5 Total Bilirubin 0.2 AST 10 L ALT 26 Alkaline Phosphatase 99 Total Creatine Kinase 83 Troponin I Less than 0.02 L Total Protein 7.7 Albumin 3.4 TSH 1.400 Urine Color Urine Clarity Urine pH Ur Specific [place] Urine Protein Urine Glucose (UA) Urine Ketones Urine Occult Blood Urine Nitrate Urine Bilirubin Urine Urobilinogen Ur Leukocyte Esterase Urine RBC Urine WBC Ur Squamous Epith Cells Urine Bacteria Urine Mucus Micro UA Comment Ur Microscopic Review 07/29/18 07/29/18 07/29/18 16:05 17:00 20:45 CBC w Diff WBC RBC Hgb Hct MCV MCH MCHC RDW Plt Count MPV Neut % (Auto) Lymph % (Auto) [place] % (Auto) Eos % (Auto) Baso % (Auto) Neut # (Auto) Lymph # (Auto) [place] # (Auto) Eos # (Auto) Baso # (Auto) WBC Differential Differential Comment PT INR D-Dimer Quant (PE/DVT) Sodium Potassium Chloride Carbon Dioxide Anion Gap BUN Creatinine Estimated GFR Random Glucose Lactic Acid 1.5 Calcium Total Bilirubin AST ALT Alkaline Phosphatase Total Creatine Kinase 76 Troponin I Less than 0.02 L Total Protein Albumin TSH Urine Color Yellow Urine Clarity Clear Urine pH 6.0 Ur Specific [place] 1.025 Urine Protein Negative Urine Glucose (UA) Negative Urine Ketones Trace H Urine Occult Blood Negative Urine Nitrate Negative Urine Bilirubin Negative Urine Urobilinogen 0.2 Ur Leukocyte Esterase Negative Urine RBC 0-3 Urine WBC 0-5 Ur Squamous Epith Cells 6-10 H Urine Bacteria Few H Urine Mucus Few H Micro UA Comment Culture not ind Ur Microscopic Review Microscopic reviewed 07/30/18 00:20 CBC w Diff WBC RBC Hgb Hct MCV MCH MCHC RDW Plt Count MPV Neut % (Auto) Lymph % (Auto) [place] % (Auto) Eos % (Auto) Baso % (Auto) Neut # (Auto) Lymph # (Auto) [place] # (Auto) Eos # (Auto) Baso # (Auto) WBC Differential Differential Comment PT INR D-Dimer Quant (PE/DVT) Sodium Potassium Chloride Carbon Dioxide Anion Gap BUN Creatinine Estimated GFR Random Glucose Lactic Acid Calcium Total Bilirubin AST ALT Alkaline Phosphatase Total Creatine Kinase 106 Troponin I Less than 0.02 L Total Protein Albumin TSH Urine Color Urine Clarity Urine pH Ur Specific [place] Urine Protein Urine Glucose (UA) Urine Ketones Urine Occult Blood Urine Nitrate Urine Bilirubin Urine Urobilinogen Ur Leukocyte Esterase Urine RBC Urine WBC Ur Squamous Epith Cells Urine Bacteria Urine Mucus Micro UA Comment Ur Microscopic Review - Imaging Impressions Chest X-Ray 07/29/18 16:02 CONCLUSION: Stable appearance with no acute pulmonary disease. Head CT 07/29/18 16:02 CONCLUSION: 1. Negative CT Head non contrast. . Cervical Spine CT 07/29/18 16:05 CONCLUSION: 1. Reversal of normal cervical lordosis which could be due to muscular spasm and/or positioning. 2. Suboptimal study due to diffuse streak artifact. No gross protrusion is identified. Chest CTA 07/29/18 16:53 CONCLUSION: 1. No acute findings. Negative for pulmonary embolus. Caprini VTE Risk Assessment Caprini VTE Risk Assessment: No/Low Risk (score <= 1) Caprini Risk Assessment Model: Point Value = 1 Point Value = 2 Point Value = 3 Point Value = 5 Age 41-60 Minor surgery BMI > 25 kg/m2 Swollen legs Varicose veins or History of unexplained or recurrent spontaneous Oral contraceptives or hormone replacement Sepsis (< 1 month) Serious lung disease, including pneumonia (< 1 month) Abnormal pulmonary function Acute myocardial infarction Congestive heart failure (< 1 month) History of inflammatory bowel disease Medical patient at bed rest Age 61-74 Arthroscopic surgery Major open surgery (> 45 min) Laparoscopic surgery (> 45 min) Malignancy Confined to bed (> 72 hours) Immobilizing plaster cast Central venous access Age >= 75 History of VTE Family history of VTE Factor V Leiden Prothrombin [id number] Lupus anticoagulant Anticardiolipin antibodies Elevated serum homocysteine Heparin-induced thrombocytopenia Other congenital or acquired thrombophilia Stroke (< 1 month) Elective arthroplasty Hip, pelvis, or leg fracture Acute spinal cord injury (< 1 month) Prophylaxis Regimen: Total Risk Factor Score Risk Level Prophylaxis Regimen 0-1 Low Early ambulation 2 Moderate Order ONE of the following: *Sequential Compression Device (SCD) *Heparin 5000 units SQ BID 3-4 Higher Order ONE of the following medications: *Heparin 5000 units SQ TID *Enoxaparin/Lovenox 40 mg SQ daily (WT < 150 kg, CrCl > 30 mL/min) *Enoxaparin/Lovenox 30 mg SQ daily (WT < 150 kg, CrCl > 10-29 mL/min) *Enoxaparin/Lovenox 30 mg SQ BID (WT < 150 kg, CrCl > 30 mL/min) AND/OR *Sequential Compression Device (SCD) 5 or more Highest Order ONE of the following medications: *Heparin 5000 units SQ TID (Preferred with Epidurals) *Enoxaparin/Lovenox 40 mg SQ daily (WT < 150 kg, CrCl > 30 mL/min) *Enoxaparin/Lovenox 30 mg SQ daily (WT < 150 kg, CrCl > 10-29 mL/min) *Enoxaparin/Lovenox 30 mg SQ BID (WT < 150 kg, CrCl > 30 mL/min) AND *Sequential Compression Device (SCD) Assessment and Plan - Assessment (1) Dizziness Code(s): R42 - Dizziness and giddiness Status: Acute (2) Chest pain Code(s): R07.9 - Chest pain, unspecified Status: Acute - Plan This is a 38-year-old female patient with Vertigo -Patient complaint of 3-day history of headache, left arm numbness and generalized malaise with vertigo. -This is possibly secondary to the initiation of her new BP medication, symptoms started shortly after starting lisinopril/HCTZ. Will dc. -Symptoms improving since presentation. -Head CT reviewed, no acute findings. -Obtain orthostatic BP's. -Continue to monitor closely. Chest pain, atypical -Patient complaint of associated left arm numbness. -Patient was ruled out for ACS with serial EKGs and serial troponins. -EKG reviewed showing SR with controlled heart rate no ST changes to indicate ischemia. Continued on cardiac telemetry, no arrhythmias noted. -Patient has multiple risk factors for coronary disease including obesity, family history significant for [place], tobacco abuse. -She will undergo a cardiac Lexiscan to further rule out any ischemia. -Further hospitalization and treatment plan will depend on results and clinical improvement. -Continue to monitor. Patient is stable at this time and agreeable to the plan. Hypertension -Will DC her home BP medications secondary to adverse effects since beginning them. -Will start on another medication if needed. Trend BP. Since presentation patient has not had elevated BP. Leukocytosis -WBC 12,000 on presentation. Afebrile. No signs of infection. -Blood cultures no growth to date, will continue to follow. -Will continue to monitor, CBC in am. DVT Prophylaxis: SCDs. Discharge Planning: Await second part of [place] tomorrow and clinical improvement. (2) Chest pain Qualifiers: Chest pain type: unspecified Qualified Code(s): R07.9 - Chest pain, unspecified
[2018-07-30] MEDS ORDERED: Regadenoson Inj 0.4 MG/5 ML Syringe IV.PUSH ONE (10:46)
--- NOTE | 2018-07-30 15:17 | ECG ---
Date Performed: 07/29/2018 Time Performed: 16:17:50 PTAGE: 38 years EKG: SINUS TACHYCARDIA LOW QRS VOLTAGE IN PRECORDIAL LEADS Since the previous tracing, no signif icant change noted ABNORMAL RHYTHM ECG PREVIOUS TRACING : 04/26/2018 19.23 DOCTOR: Sukumar Whitney Interpretating Date/Time 07/30/2018 15:01:18
--- NOTE | 2018-07-30 15:17 | ECG ---
Date Performed: 07/29/2018 Time Performed: 22:27:55 PTAGE: 38 years EKG: Sinus rhythm LOW QRS VOLTAGE IN PRECORDIAL LEADS Since the previous tracing, no significant change noted BORDERLI NE ECG PREVIOUS TRACING : 07/29/2018 20.08 DOCTOR: Sukumar Whitney Interpretating Date/Time 07/30/2018 15:01:03
--- NOTE | 2018-07-30 15:17 | ECG ---
Date Performed: 07/29/2018 Time Performed: 20:08:43 PTAGE: 38 years EKG: Sinus rhythm Since the previous tracing, no significant change noted NORMAL ECG PREVIOUS TRACING : 07/29/2018 16.17 DOCTOR: Sukumar Whitney Interpretating Date/Time 07/30/2018 15:01:10
--- NOTE | 2018-07-30 17:15 | TR ---
Date Performed: 07/30/2018 Time Performed: 10:26:25 DOCTOR: Makayla Hair DRUG LIST: CLINICAL HISTORY: REASON FOR TEST: REASON FOR ENDING: OBSERVATION: CONCLUSION: Lexiscan stress test was performed under standard four minute protocol. Radionuclid e was injected one minute prior to ending the test. No electrocardiographic abormalities were present to suggest ischemia. Nuclear imaging and interpretation are pending. COMMENTS: Lexiscan stress test was performed under standard four minute protocol. Radionuclide was injected one minute prior to ending the test. No electrocardiographic abormalities were present t o suggest ischemia. Nuclear imaging and interpretation are pending.
[2018-07-31 05:59] LABS: Baso # (Auto) 0.1 th/mm3 (0.0-0.2); Baso % (Auto) 0.8 % (0.0-2.0); Eos # (Auto) 0.4 th/mm3 (0.0-0.4); Eos % (Auto) 3.9 % (0.0-4.0); Hematocrit 37.4 % (35.0-46.0); Hemoglobin 12.4 gm/dL (11.6-15.3); Lymph % (Auto) 26.1 % (9.0-44.0); Mean Corpuscular HGB Conc 33.1 % (32.0-36.0); Mean Corpuscular Hemoglobin 29.6 pg (27.0-34.0); Mean Corpuscular Volume 89.5 fL (80.0-100.0); Mean Platelet Volume 8.6 fL (7.0-11.0); Mono # (Auto) 0.8 th/mm3 (0.0-0.9); Neut # (Auto) 7.2 th/mm3 (1.8-7.7); Neut % (Auto) 62.2 % (16.0-70.0); Platelet Count 333 th/mm3 (150-450); Red Blood Count 4.18 mil/mm3 (4.00-5.30); Red Cell Distribution Width 13.8 % (11.6-17.2); White Blood Count 11.5 th/mm3 (4.0-11.0)
--- NOTE | 2018-07-31 08:26 | P.PNIM ---
Subjective Interval history: Follow up chest pain. Patient seen and examined, lying in bed awaiting second part of lexiscan. Denies any new acute complaints overnight. Afebrile. Dizziness resolved. Spoke to sales consultant insurance printer helper, Dr. Appiah who has reviewed her Lexiscan and does seem to believe there is any reversibility. Recommendations are for a CTA to evaluate any coronary syndrome. Will continue to follow. Physical Exam Vital signs: Vital Signs 07/30/18 12:00 07/30/18 16:00 07/30/18 17:06 Temperature 96.6 F L 97.8 F Pulse Rate 94 H 71 82 Respiratory Rate 20 15 Blood Pressure 166/87 H Pulse Oximetry 96 07/30/18 20:30 07/30/18 21:28 07/31/18 00:00 Temperature 97.5 F L 98.1 F Pulse Rate 85 88 107 H Respiratory Rate 20 20 Blood Pressure 101/59 L 127/67 Pulse Oximetry 97 97 07/31/18 04:00 Temperature 96.5 F L Pulse Rate 92 H Respiratory Rate 18 Blood Pressure 124/65 Pulse Oximetry 96 Intake & Output 07/30/18 07/31/18 07/31/18 18:59 06:59 18:59 Intake Total 800 / 800 Balance 800 / 800 Intake: Oral 800 / 800 Other: # Voids 3 1 Date of Last Bowel Movement 07/30/18 Narrative: GENERAL: Well-developed, well-nourished obese patient in [facility]. Lying in bed comfortably no apparent distress. SKIN: Warm and dry. No rash. HEAD: Normocephalic. Atraumatic. EYES: Pupils equal and round. No scleral icterus. No injection or drainage. ENT: No nasal bleeding or discharge. Mucous membranes pink and moist. NECK: Supple. Trachea midline. CARDIOVASCULAR: Regular rate and rhythm. S1, S2 noted. No murmur appreciated. No reproducible chest pain to palpation. RESPIRATORY: No accessory muscle use. Clear to auscultation. Breath sounds equal bilaterally. GASTROINTESTINAL: Abdomen soft, non-tender, nondistended. Normoactive bowel sounds x4. MUSCULOSKELETAL: No obvious deformities. Extremities without clubbing, cyanosis. Bilateral lower extremity edema, 1+. NEUROLOGICAL: Awake and alert. No obvious cranial nerve deficits. Motor grossly within normal limits. 5/5 muscle strength in bilateral upper and lower extremities. Normal speech. PSYCHIATRIC: Appropriate mood and affect; insight and judgment normal. Results - Labs CBC & Chem 7: 07/31/18 04:49 07/29/18 16:05 Laboratory Results - last 24 hr 07/31/18 04:49 CBC w Diff Auto diff final WBC 11.5 H RBC 4.18 Hgb 12.4 Hct 37.4 MCV 89.5 MCH 29.6 MCHC 33.1 RDW 13.8 Plt Count 333 MPV 8.6 Neut % (Auto) 62.2 Lymph % (Auto) 26.1 [place] % (Auto) 7.0 Eos % (Auto) 3.9 Baso % (Auto) 0.8 Neut # (Auto) 7.2 Lymph # (Auto) 3.0 [place] # (Auto) 0.8 Eos # (Auto) 0.4 Baso # (Auto) 0.1 WBC Differential . Differential Comment . Microbiology 07/29/18 16:05 Blood - Peripheral Aerobic Blood Culture - Preliminary No growth in 1 day 07/29/18 16:05 Blood - Peripheral Anaerobic Blood Culture - Preliminary No growth in 1 day 07/29/18 16:05 Blood - Peripheral Aerobic Blood Culture - Preliminary No growth in 1 day 07/29/18 16:05 Blood - Peripheral Anaerobic Blood Culture - Preliminary No growth in 1 day Assessment and Plan - Assessment (1) Dizziness Code(s): R42 - Dizziness and giddiness Status: Acute (2) Chest pain Code(s): R07.9 - Chest pain, unspecified Status: Acute - Plan This is a 38-year-old female patient with Vertigo. Improved. -Patient complaint of 3-day history of headache, left arm numbness and generalized malaise with vertigo. -This is possibly secondary to the initiation of her new BP medication, symptoms started shortly after starting lisinopril/HCTZ. Will dc. -Symptoms improved since presentation. -Head CT reviewed, no acute findings. -Obtain orthostatic BP's, normal. -Continue to monitor closely. Chest pain, atypical. Resolved. -Patient complaint of associated left arm numbness. -Patient was ruled out for ACS with serial EKGs and serial troponins. -EKG reviewed showing SR with controlled heart rate no ST changes to indicate ischemia. Continued on cardiac telemetry, no arrhythmias noted. -Patient has multiple risk factors for coronary disease including obesity, family history significant for [place], tobacco abuse. -She underwent a cardiac Lexiscan to further rule out any ischemia. Results showing possible reversibility. physically impaired teacher printer helper, Dr. Appiah evaluated patient and it did not seem to show reversibility. He is recommending a CTA to evaluate the coronaries. -Further hospitalization and treatment plan will depend on results and clinical improvement. -Continue to monitor. Patient is stable at this time and agreeable to the plan. Hypertension, resolved. -Will DC her home BP medications secondary to adverse effects since beginning them. -Since presentation patient has not had elevated BP. Leukocytosis, improved. -WBC 12,000 on presentation. Afebrile. No signs of infection. -Blood cultures no growth to date, will continue to follow. DVT Prophylaxis: SCDs. Discharge Planning: Await CTA. (2) Chest pain Qualifiers: Chest pain type: unspecified Qualified Code(s): R07.9 - Chest pain, unspecified
--- NOTE | 2018-07-31 10:51 | NM ---
EXAM DATE: 07/31/2018 10:45 AM EDT AGE/SEX: 38 years / Female INDICATIONS:Angina. Atrial fibrillation Chest pain. CLINICAL DATA: This is the patient's initial encounter. Patient reports that signs and symptoms have been present for 1 day and indicates a pain score of 1/10. MEDICAL/SURGICAL HISTORY: Hypertension. Fibromyalgia. None. COMPARISON: [facility], CTA PULMONARY W CONTRAST W 3D, 07/29/2018. . DOSE: 30.1 mCi Tc 99m Myoview at rest 30.1 mCi [id number] at stress 0.4 mg Lexiscan STRESS SYMPTOMS: Nausea. EJECTION FRACTION: 53 % TECHNIQUE: The patient underwent pharmacologic stress with infusion of prescribed dose. Continuous ECG tracing was monitored during stress. Gated SPECT imaging was performed after stress and conventi onal SPECT imaging was performed at rest. The examination was performed on a SPECT/CT scanner, both attenuation and non-corrected datasets were reviewed. FINDINGS: Distribution: The maximum perfused segment at stress is in the septal wall. Perfusion Study: There is a small perfusion defect involving the apical lateral segment with decrea se in perfusion approximately 40%. There is some questionable incomplete redistribution on the restin g injections scan. Radiotracer uptake throughout remainder of the left ventricular myocardium is with in normal limits. The sum stress score is 5. Gated Study: There are intact wall motion and wall thickening without hypokinetic or dyskinetic segm ents. The ejection fraction is calculated at 53%. RISK CATEGORY: Intermediate (1-3 % Annual Mortality Rate) CONCLUSION: 1. Small size, moderate severity, perfusion defect involving the apical lateral segment with questio nable redistribution. Differential considerations include both myocardial scar and a small area of st ress-induced ischemia. 2. Normal wall motion with 53% ejection fraction. Electronically signed by: Hiram Courtney MD 07/31/2018 10:49 AM EDT
== END 2018-07-31 16:51 | disposition home or self-care (01) ==
LOC: PHEDA 15:32 → PHED 15:32 → PH3 21:10
PROVIDERS: ADMIT Internal Medicine; ATTEND Internal Medicine

== ENCOUNTER 2018-08-05 14:15 | Observation (INO) ==
[2018-08-05 15:45] LABS: Baso # (Auto) 0.3 th/mm3 (0.0-0.2); Baso % (Auto) 2.7 % (0.0-2.0); Eos # (Auto) 0.3 th/mm3 (0.0-0.4); Eos % (Auto) 2.5 % (0.0-4.0); Hematocrit 37.7 % (35.0-46.0); Hemoglobin 12.6 gm/dL (11.6-15.3); Lymph # (Auto) 2.7 th/mm3 (1.0-4.8); Lymph % (Auto) 26.5 % (9.0-44.0); Mean Corpuscular HGB Conc 33.4 % (32.0-36.0); Mean Corpuscular Hemoglobin 29.5 pg (27.0-34.0); Mean Corpuscular Volume 88.1 fL (80.0-100.0); Mean Platelet Volume 8.5 fL (7.0-11.0); Mono # (Auto) 0.7 th/mm3 (0.0-0.9); Mono % (Auto) 6.7 % (0.0-8.0); Neut # (Auto) 6.2 th/mm3 (1.8-7.7); Neut % (Auto) 61.6 % (16.0-70.0); Platelet Count 363 th/mm3 (150-450); Red Blood Count 4.28 mil/mm3 (4.00-5.30); Red Cell Distribution Width 14.1 % (11.6-17.2); White Blood Count 10.2 th/mm3 (4.0-11.0)
--- NOTE | 2018-08-05 15:49 | XR ---
EXAM DATE: 08/05/2018 3:43 PM EST AGE/SEX: 38 years / Female INDICATIONS: Left side chest pressure. CLINICAL DATA: This is the patient's initial encounter. Patient reports that signs and symptoms have been present for 1 day and indicates a pain score of 3/10. MEDICAL/SURGICAL HISTORY: Hypertension. None. COMPARISON: [facility], CHEST 1V SINGLE AP, 07/29/2018. . FINDINGS: No new focal pleural or parenchymal opacities. The cardiac silhouette is slightly enlarged likely du e to technique. Osseous structures are intact. CONCLUSION: 1. Enlargement of the cardiac silhouette, likely due to technique. 2. Otherwise, no acute abnormality. Electronically signed by: Arnel Frank MD 08/05/2018 3:48 PM EST
[2018-08-05 15:56] LABS: Chloride 104 meq/L (98-107); Potassium 4.1 meq/L (3.5-5.1); Sodium 138 meq/L (136-145)
[2018-08-05 16:00] LABS: Anion Gap 7 meq/L (5-15); Blood Urea Nitrogen 14 mg/dL (7-18); Carbon Dioxide 26.9 meq/L (21.0-32.0); Glucose,Random 100 mg/dL (74-106); Lipase 74 U/L (73-393)
[2018-08-05 16:03] LABS: Alanine Aminotransferase 28 U/L (10-53); Aspartate Aminotransferase 21 U/L (15-37); Glomerular Filtration Rate Greater Than 89 mL/min (>89)
[2018-08-05 16:04] LABS: Activated Partial Thrombo Time 30.5 sec (23.4-31.7); Prothrombin Time 10.3 sec (9.8-11.6)
[2018-08-05 16:06] LABS: Alkaline Phosphatase 94 U/L (45-117)
[2018-08-05 16:13] LABS: Creatine Kinase 93 U/L (26-192)
[2018-08-05] MEDS ORDERED: Aspirin 325 MG Tablet PO ONE (16:45)
--- NOTE | 2018-08-05 16:45 | ED ---
HPI General Chief Complaint: Chest Pain Stated Complaint: Cardiac Complaint Time Seen by Provider: 08/05/18 14:57 Source: patient Mode of arrival: ambulatory Limitations: no limitations History of Present Illness HPI narrative: Patient is a 38-year-old female with history of hypertension, atrial fibrillation, PCOS, fibromyalgia, presents to the emergency room with complaints of continued chest pain. Patient reports that she was seen here and admitted to the hospital for chest pain on July 31, 2018. Patient reports that she was told to follow-up with a editorial writer, patient reports that she felt fine and made some phone calls for follow-up today as she began to have return of chest pain. Reports that when she called the office, the office was closed, they instructed her to come directly to the emergency room for evaluation. Patient reports that since yesterday, she has been having chest pain. Patient reports that chest pain feels like a "jolt of pain in my heart." Reports that she has some fluttering her heart as well as some fullness in her chest, this pain does radiate from her chest to her left shoulder. Patient reports that she had an abnormal myocardial perfusion scan, she is here in the ER as she is concerned about her chest pain. Related Data Previous Rx's Medication Instructions Recorded aspirin [Adult Low Dose Aspirin] 1 mg/kg PO DAILY 30 Days tab 07/31/18 lisinopril 2.5 mg PO DAILY 30 Days #30 tab 07/31/18 metoprolol succinate 12.5 mg PO DAILY 30 Days #15 tab 07/31/18 furosemide 40 mg PO DAILY PRN #30 tab 08/06/18 potassium chloride 10 meq PO DAILY PRN #30 cap 08/06/18 Allergies Allergy/AdvReac Type Severity Reaction Status Date / Time amoxicillin Allergy Severe THROAT Verified 07/29/18 15:48 SWELLS, SOB clavulanic acid Allergy Severe THROAT Verified 07/29/18 15:48 SWELLS, SOB ciprofloxacin AdvReac Intermediate Nausea/Vomi Verified 07/29/18 15:48 ting Review of Systems ROS: all other systems reviewed are negative [facility] Medical History Medical History Afib (Acute) Fibromyalgia (Acute) History of migraine headaches (Acute) History of pineal cyst (Acute) PCOS (polycystic ovarian syndrome) (Acute) Surgical History Surgical History History of dental surgery (Acute) Family History Family History Other Cardiovascular disease Social History Social History Substance History: No History of Abuse Second Hand Smoke Exposure: Yes Smoking Status: Current every day smoker Tobacco Type: Cigarettes How Often Do You Have a Drink Containing Alcohol: Monthly or less Recent Travel in [facility] within the Last 8 Weeks: No Recent Out of Country Travel within the Last 8 Weeks: No Immunization History Tetanus Immunization: >5 Years Exam Narrative Exam Narrative: GENERAL: Mild distress SKIN: Focused skin assessment warm/dry. HEAD: Atraumatic. Normocephalic. EYES: Pupils equal and round. No scleral icterus. No injection or drainage. ENT: No nasal bleeding or discharge. Mucous membranes pink and moist. NECK: Trachea midline. No JVD. CARDIOVASCULAR: Regular rate and rhythm. No murmur appreciated. RESPIRATORY: No accessory muscle use. Clear to auscultation. Breath sounds equal bilaterally. GASTROINTESTINAL: Abdomen soft, non-tender, nondistended. Hepatic and splenic margins not palpable. MUSCULOSKELETAL: No obvious deformities. No clubbing. No cyanosis. No edema. NEUROLOGICAL: Awake and alert. No obvious cranial nerve deficits. Motor grossly within normal limits. Normal speech. PSYCHIATRIC: Appropriate mood and affect; insight and judgment normal. Course Initial Documented Vital Signs Temperature 98.8 F 08/05/18 14:23 Pulse Rate 99 H 08/05/18 14:23 Respiratory Rate 20 08/05/18 14:23 Blood Pressure 166/107 H 08/05/18 14:23 Pulse Oximetry 98 08/05/18 14:23 Last Documented Vital Signs Temperature 97.9 F 08/06/18 12:00 Pulse Rate 80 08/06/18 17:00 Respiratory Rate 18 08/06/18 12:00 Blood Pressure 164/78 H 08/06/18 12:00 Pulse Oximetry 99 08/06/18 12:00 Critical Care Time Critical Care Time: Yes Total Critical Care Time: 30 Attestation: Aggregate critical care time was 30 minutes. Time to perform other separately billable procedures was not included in the critical care time. My time did not include minutes spent treating any other patients simultaneously or on activities that did not directly contribute to the patient's treatment. The services I provided to this patient were to treat and/or prevent clinically significant deterioration that could result in: , decompensation, deterioration I provided critical care services requiring my management, as noted below: Chart data review, documentation time, medication orders and management, vital sign assessments/reviewing monitor data, ordering and reviewing lab tests, ordering and interpreting/reviewing x-rays and diagnostic studies, care of the patient and discussion of the patient with the admitting physicians. Medical Decision Making MDM Narrative Medical decision making narrative: During the course of the patients emergency department visit, the patients history, examination, and differential diagnosis were reviewed with the patient. The patient was placed on a clinical research monitor with oximetry and frequent blood pressure monitoring. The patient had an IV access obtained and blood work sent for analysis. The patient was initially provided asa as well as sl nitro for pain relief The patients laboratory studies were reviewed and remarkable for WBC 10.2, hemoglobin 12.6, hematocrit 37.7, platelets 363 Sodium 138, potassium 4.1, BUN 14, creatinine 0.65, glucose 100 Troponin less than 0.02, BNP 23 I did review records from her previous observation in the chest pain unit. Patient did have a nuclear myocardial perfusion scan which showed that she had a small size, moderate severity, perfusion defect involving the apical lateral segment with questionable redistribution. She has a normal EF of 53%. [facility] did talk to editorial writer who recommended coronary CT - they were unable to obtain this coronary CT due to her weight as patient is 200.7 kg. Patient does not fit into the CT machine. Since patient has continued pain and has an abnormal perfusion scan, decision was to admit her to the hospital for further evaluation of her chest pain. I did talk to Dr. Perez who recommends that I call Dr. Whitney who is on-call for the ED for further recommendations as there are no other interventions that could be done at this [facility]. I did put a call out to Dr. Whitney case reviewed with Dr. Whitney - recommends that patient be transferred to [facility] for possible cardiac cath, a consult for him has been placed will start patient on heparin drip Case reviewed with Dr. Perez who accepts patient for transfer to [facility] Medical Screen Exam Complete: Yes Emergency Medical Condition: Yes Differential Diagnosis Differential Diagnosis: acs, arrythmia, pe, dvt, pneumothorax Lab Data Result diagrams: 08/06/18 08:13 08/06/18 08:13 Lab Results 08/05/18 08/05/18 08/05/18 Range/Units 15:30 15:30 15:30 CBC w Diff Auto diff final WBC 10.2 (4.0-11.0) th/mm3 RBC 4.28 (4.00-5.30) mil/mm3 Hgb 12.6 (11.6-15.3) gm/dL Hct 37.7 (35.0-46.0) % MCV 88.1 (80.0-100.0) fL MCH 29.5 (27.0-34.0) pg MCHC 33.4 (32.0-36.0) % RDW 14.1 (11.6-17.2) % Plt Count 363 (150-450) th/mm3 MPV 8.5 (7.0-11.0) fL Neut % (Auto) 61.6 (16.0-70.0) % Lymph % (Auto) 26.5 (9.0-44.0) % [place] % (Auto) 6.7 (0.0-8.0) % Eos % (Auto) 2.5 (0.0-4.0) % Baso % (Auto) 2.7 H (0.0-2.0) % Neut # (Auto) 6.2 (1.8-7.7) th/mm3 Lymph # (Auto) 2.7 (1.0-4.8) th/mm3 [place] # (Auto) 0.7 (0.0-0.9) th/mm3 Eos # (Auto) 0.3 (0.0-0.4) th/mm3 Baso # (Auto) 0.3 H (0.0-0.2) th/mm3 WBC Differential . Differential Comment . PT 10.3 (9.8-11.6) sec INR 1.0 Ratio APTT 30.5 (23.4-31.7) sec Sodium 138 (136-145) meq/L Potassium 4.1 (3.5-5.1) meq/L Chloride 104 (98-107) meq/L Carbon Dioxide 26.9 (21.0-32.0) meq/L Anion Gap 7 (5-15) meq/L BUN 14 (7-18) mg/dL Creatinine 0.65 (0.50-1.00) mg/dL Estimated GFR Greater than 89 (>89) mL/min Random Glucose 100 (74-106) mg/dL Calcium 8.0 L (8.5-10.1) mg/dL Total Bilirubin 0.1 L (0.2-1.0) mg/dL AST 21 (15-37) U/L ALT 28 (10-53) U/L Alkaline Phosphatase 94 (45-117) U/L Total Creatine Kinase 93 (26-192) U/L Troponin I Less than 0.02 L (0.02-0.05) ng/mL B-Natriuretic Peptide (0-100) pg/mL Total Protein 7.0 D (6.4-8.2) g/dL Albumin 3.0 L (3.4-5.0) g/dL Lipase 74 (73-393) U/L 08/05/18 08/05/18 08/06/18 Range/Units 15:30 18:23 00:45 CBC w Diff WBC (4.0-11.0) th/mm3 RBC (4.00-5.30) mil/mm3 Hgb (11.6-15.3) gm/dL Hct (35.0-46.0) % MCV (80.0-100.0) fL MCH (27.0-34.0) pg MCHC (32.0-36.0) % RDW (11.6-17.2) % Plt Count (150-450) th/mm3 MPV (7.0-11.0) fL Neut % (Auto) (16.0-70.0) % Lymph % (Auto) (9.0-44.0) % [place] % (Auto) (0.0-8.0) % Eos % (Auto) (0.0-4.0) % Baso % (Auto) (0.0-2.0) % Neut # (Auto) (1.8-7.7) th/mm3 Lymph # (Auto) (1.0-4.8) th/mm3 [place] # (Auto) (0.0-0.9) th/mm3 Eos # (Auto) (0.0-0.4) th/mm3 Baso # (Auto) (0.0-0.2) th/mm3 WBC Differential Differential Comment PT (9.8-11.6) sec INR Ratio APTT (23.4-31.7) sec Sodium (136-145) meq/L Potassium (3.5-5.1) meq/L Chloride (98-107) meq/L Carbon Dioxide (21.0-32.0) meq/L Anion Gap (5-15) meq/L BUN (7-18) mg/dL Creatinine (0.50-1.00) mg/dL Estimated GFR (>89) mL/min Random Glucose (74-106) mg/dL Calcium (8.5-10.1) mg/dL Total Bilirubin (0.2-1.0) mg/dL AST (15-37) U/L ALT (10-53) U/L Alkaline Phosphatase (45-117) U/L Total Creatine Kinase 91 (26-192) U/L Troponin I Less than 0.02 L Less than 0.02 L (0.02-0.05) ng/mL B-Natriuretic Peptide 23 (0-100) pg/mL Total Protein (6.4-8.2) g/dL Albumin (3.4-5.0) g/dL Lipase (73-393) U/L 08/06/18 08/06/18 08/06/18 Range/Units 08:13 08:13 08:13 CBC w Diff WBC 9.0 (4.0-11.0) th/mm3 RBC 4.20 (4.00-5.30) mil/mm3 Hgb 12.8 (11.6-15.3) gm/dL Hct 38.4 (35.0-46.0) % MCV 91.4 (80.0-100.0) fL MCH 30.4 (27.0-34.0) pg MCHC 33.3 (32.0-36.0) % RDW 14.2 (11.6-17.2) % Plt Count 210 D (150-450) th/mm3 MPV 8.9 (7.0-11.0) fL Neut % (Auto) 63.0 (16.0-70.0) % Lymph % (Auto) 27.6 (9.0-44.0) % [place] % (Auto) 5.9 (0.0-8.0) % Eos % (Auto) 2.5 (0.0-4.0) % Baso % (Auto) 1.0 (0.0-2.0) % Neut # (Auto) 5.7 (1.8-7.7) th/mm3 Lymph # (Auto) 2.5 (1.0-4.8) th/mm3 [place] # (Auto) 0.5 (0.0-0.9) th/mm3 Eos # (Auto) 0.2 (0.0-0.4) th/mm3 Baso # (Auto) 0.1 (0.0-0.2) th/mm3 WBC Differential . Differential Comment Auto diff final PT (9.8-11.6) sec INR Ratio APTT 29.8 (23.4-31.7) sec Sodium 139 (136-145) meq/L Potassium 4.0 (3.5-5.1) meq/L Chloride 105 (98-107) meq/L Carbon Dioxide 27.0 (21.0-32.0) meq/L Anion Gap 7 (5-15) meq/L BUN 11 (7-18) mg/dL Creatinine 0.61 (0.50-1.00) mg/dL Estimated GFR Greater than 89 (>89) mL/min Random Glucose 131 H (74-106) mg/dL Calcium 8.3 L (8.5-10.1) mg/dL Total Bilirubin (0.2-1.0) mg/dL AST (15-37) U/L ALT (10-53) U/L Alkaline Phosphatase (45-117) U/L Total Creatine Kinase (26-192) U/L Troponin I (0.02-0.05) ng/mL B-Natriuretic Peptide (0-100) pg/mL Total Protein (6.4-8.2) g/dL Albumin (3.4-5.0) g/dL Lipase (73-393) U/L Imaging Data Radiologist's impression: Chest X-Ray 08/05/18 15:11 CONCLUSION: 1. Enlargement of the cardiac silhouette, likely due to technique. 2. Otherwise, no acute abnormality. Venous Doppler Study 08/06/18 00:00 CONCLUSION: 1. Negative examination with no evidence of deep venous thrombosis. Discharge Plan Discharge Disposition Patient Disposition: 02 Transfer To [facility] [place] Discharge Condition Condition: Stable Discharge Details Diagnosis: Chest pain Physicians Team ED Provider: Soledad Hernández Primary Care Provider: Primary Care Ashley Caldwell Attending Provider: Maynor Vasquez Other Providers: Sukumar Whitney Status ED Status: Left Department Discharge Information Discharge Date/Time: 08/05/18 21:22
[2018-08-05] MEDS ORDERED: Heparin Drip 25,000 UNIT/250 ML BAG IV.CONT PRN (17:15)
[2018-08-05] MEDS ORDERED: Bisacodyl 10 MG Supp RECTAL PRN (17:27)
[2018-08-05] MEDS ORDERED: Iohexol 350 MG/ML 100 ML Vial (for Cath Lab) IVCONTRAST ONE (17:28)
--- NOTE | 2018-08-05 19:03 | ECG ---
Date Performed: 08/05/2018 Time Performed: 16:23:25 PTAGE: 38 years EKG: Sinus rhythm WITH SINUS ARRHYTHMIA LOW QRS VOLTAGE IN PRECORDIAL LEADS BORDERLINE ECG No significant change from prior electrocardiogram. PREVIOUS TRACING : 07/29/2018 22.27 DOCTOR: Galindo Yepez Interpretating Date/Time 08/05/2018 19:01:33
[2018-08-05 19:04] LABS: Creatine Kinase 91 U/L (26-192)
--- NOTE | 2018-08-05 19:04 | ECG ---
Date Performed: 08/05/2018 Time Performed: 15:00:35 PTAGE: 38 years EKG: Sinus rhythm LOW QRS VOLTAGE IN PRECORDIAL LEADS BORDERLINE ECG No significant change from prior electrocardiogra [place] DOCTOR: Galindo Yepez Interpretating Date/Time 08/05/2018 19:04:05
[2018-08-05] MEDS: Sod Chloride 0.9% Inj 1,000 ML IV.CONT SCH (20:07)
--- NOTE | 2018-08-05 22:53 | P.HPIM ---
History of Present Illness Service: [facility] Primary Care Physician: No Primary Care Physician Chief Complaint: heart palpitations History of Present Illness: 38 y/o female with a history of htn, afib, obesity, and fibromyalgia presented to the ED with complaints of heart palpitations. Patient states she has been having heart palpitations and developed a sharp pain in her shoulder that radiates down her arm. She states the pain is intermittent and she denies any chest pressure of shortness of breath. She feels her heart is fluttering during these events. She does have anxiety but does not take medication for it. She was seen here on and had a stress test that reveled a small defect that could represent an old scar or ischemia. She tried to call the hydrologist today to follow up and they were closed and instructed her to come to the ED. She also complains of swelling and pain in her bilateral lower extremities. Inpatient Certification Inpatient Certification: I certify that the inpatient services were ordered in accordance with Medicare regulations governing the order. This includes certification that hospital inpatient services are reasonable and necessary and in the case of services not specified as inpatient-only under 42 CFR 419.22(n), that they are appropriately provided as inpatient services in accordance to with the 2-midnight benchmark under 43 CFR 412.3(e) Review of Systems ROS: all other systems reviewed are negative [facility] Medical History Medical History Afib (Acute) Fibromyalgia (Acute) History of migraine headaches (Acute) History of pineal cyst (Acute) PCOS (polycystic ovarian syndrome) (Acute) Surgical History Surgical History History of dental surgery (Acute) Family History Family History Other Cardiovascular disease Social History Social History Substance History: No History of Abuse Second Hand Smoke Exposure: Yes Smoking Status: Current every day smoker Tobacco Type: Cigarettes How Often Do You Have a Drink Containing Alcohol: Monthly or less Recent Travel in [facility] within the Last 8 Weeks: No Recent Out of Country Travel within the Last 8 Weeks: No Immunization History Tetanus Immunization: >5 Years Medications and Allergies Allergies Allergy/AdvReac Type Severity Reaction Status Date / Time amoxicillin Allergy Severe THROAT Verified 07/29/18 15:48 SWELLS, SOB clavulanic acid Allergy Severe THROAT Verified 07/29/18 15:48 SWELLS, SOB ciprofloxacin AdvReac Intermediate Nausea/Vomi Verified 07/29/18 15:48 ting Active Medications: Active Medications Acetaminophen (Tylenol) 650 mg PO Q4H PRN PRN Reason: Temp > 100.4 Al Hydroxide/Mg Hydroxide (Milk Of Magnesia Liq) 30 ml PO Q12H PRN PRN Reason: Mild Constipation Bisacodyl (Dulcolax Supp) 10 mg RECTAL DAILY PRN PRN Reason: SEVERE CONSITIPATION Heparin Sodium/Dextrose (Heparin/D5w 25,000 U/250 Ml) 25,000 unit in 250 mls @ 0 mls/hr IV.CONT TITRATE PRN; Protocol PRN Reason: Per Protocol Last Admin: 08/05/18 20:05 Dose: 1,000 units/hr, 10 mls/hr Sodium Chloride (Ns Inj) 1,000 mls @ 100 mls/hr IV.CONT .Q10H REPLACED BY [facility] Last Admin: 08/05/18 20:07 Dose: 100 mls/hr Lactulose (Lactulose Liq) 30 ml PO DAILY PRN PRN Reason: SEVERE CONSITIPATION Ondansetron HCl (Zofran Inj) 4 mg IV.PUSH Q6H PRN PRN Reason: NAUSEA OR VOMITING Sennosides (Senokot) 17.2 mg PO Q12H PRN PRN Reason: Moderate Constipation Sodium Chloride (Ns Flush) 2 ml IV.FLUSH UNSCH PRN PRN Reason: FLUSH AFTER USING IV ACCESS Physical Exam Vital signs: Last Vital Signs Temp 98.4 F 08/05/18 22:24 Pulse 70 08/05/18 22:24 Resp 20 08/05/18 22:24 BP 170/99 H 08/05/18 22:24 Pulse Ox 97 08/05/18 22:24 Intake & Output 08/03/18 08/04/18 08/05/18 08/06/18 07:59 06:59 06:59 06:59 Weight 200.7 kg Narrative: GENERAL: Obese patient in no acute distress lying in bed SKIN: Warm and dry. HEAD: Atraumatic. Normocephalic. EYES: Pupils equal and round. No scleral icterus. No injection or drainage. CARDIOVASCULAR: Regular rate and rhythm. RESPIRATORY: No accessory muscle use. Clear to auscultation. Breath sounds equal bilaterally. Slight wheeze in Left lower lobe GASTROINTESTINAL: Abdomen soft, non-tender, nondistended. Hepatic and splenic margins not palpable. MUSCULOSKELETAL: Bilateral lower extremity mild edema NEUROLOGICAL: Awake and alert. No obvious cranial nerve deficits. Motor grossly within normal limits. Five out of 5 muscle strength in the arms and legs. Normal speech. Assessment and Plan Plan Heart palpitations/ chest, arm pain, atypical r/o ACS EKG reviewed and shows Sinus Rhythm Troponin .02 x 3 -Serial troponin and ekg completed -Monitor telemetry -Consult cardiology for evaluation -Heparin drip HTN, chronic -Resume home medications, monitor vitals Bilateral leg swelling, d-dimer elevated last admission, PE ruled out on 07/30 -Doppler US bilateral ordered Wheezing, likely due smoking -Duonebs as needed DVT prophylaxis: Heparin Discussed Condition With: Patient and RN H&P: Quality VTE Deep Vein Thrombosis/Pulmonary Embolism Present on Admission: No
[2018-08-06] MEDS ORDERED: Acetaminophen 325 MG Tablet PO PRN (01:57)
--- NOTE | 2018-08-06 05:07 | ECG ---
Date Performed: 08/05/2018 Time Performed: 21:12:02 PTAGE: 38 years EKG: Sinus rhythm NORMAL ECG No significant change from prior electrocardiogram. PREVIOUS TRACING : 08/05/2018 16.23 DOCTOR: Galindo Yepez Interpretating Date/Time 08/06/2018 05:05:52
[2018-08-06] MEDS: Sod Chloride 0.9% Inj 1,000 ML IV.CONT SCH ×2 (05:18→15:01)
[2018-08-06] MEDS: Acetaminophen 325 MG Tablet PO PRN ×2 (05:20→10:17)
[2018-08-06 08:59] LABS: Baso # (Auto) 0.1 th/mm3 (0.0-0.2); Eos # (Auto) 0.2 th/mm3 (0.0-0.4); Eos % (Auto) 2.5 % (0.0-4.0); Hematocrit 38.4 % (35.0-46.0); Hemoglobin 12.8 gm/dL (11.6-15.3); Lymph # (Auto) 2.5 th/mm3 (1.0-4.8); Lymph % (Auto) 27.6 % (9.0-44.0); Mean Corpuscular HGB Conc 33.3 % (32.0-36.0); Mean Corpuscular Hemoglobin 30.4 pg (27.0-34.0); Mean Corpuscular Volume 91.4 fL (80.0-100.0); Mean Platelet Volume 8.9 fL (7.0-11.0); Mono # (Auto) 0.5 th/mm3 (0.0-0.9); Mono % (Auto) 5.9 % (0.0-8.0); Neut # (Auto) 5.7 th/mm3 (1.8-7.7); Platelet Count 210 th/mm3 (150-450); Red Cell Distribution Width 14.2 % (11.6-17.2)
[2018-08-06] MEDS ORDERED: Lisinopril 5 MG Tablet PO SCH (09:00)
[2018-08-06 09:08] VITALS: TEMP 97.9
[2018-08-06 09:31] LABS: Anion Gap 7 meq/L (5-15); Blood Urea Nitrogen 11 mg/dL (7-18); Calcium 8.3 mg/dL (8.5-10.1); Chloride 105 meq/L (98-107); Glomerular Filtration Rate Greater Than 89 mL/min (>89); Glucose,Random 131 mg/dL (74-106); Sodium 139 meq/L (136-145)
--- NOTE | 2018-08-06 10:34 | US ---
EXAM DATE: 08/06/2018 10:30 AM EST AGE/SEX: 38 years / Female INDICATIONS: Swelling with elevated D-dimer. CLINICAL DATA: This is the patient's initial encounter. Patient reports that signs and symptoms have been present for 1 day and indicates a pain score of 1/10. MEDICAL/SURGICAL HISTORY: . Hypertension. Fibromyalgia. None. COMPARISON: . TECHNIQUE: Venous ultrasound of both lower extremities was performed from the inguinal ligament to t he proximal calf. Real-time, color Doppler and spectral tracing, compression and augmentation techni ques were used. FINDINGS: Right Leg: Normal compression of the deep venous system from the inguinal region to the proximal padmini f. No echogenic clot is seen. Normal response of the venous system to augmentation and respiration. Left Leg: Normal compression of the deep venous system from the inguinal region to the proximal calf . No echogenic clot is seen. Normal response of the venous system to augmentation and respiration. Other: None. CONCLUSION: 1. Negative examination with no evidence of deep venous thrombosis. Electronically signed by: Jagdish Toth MD 08/06/2018 10:32 AM EST
--- NOTE | 2018-08-06 11:31 | P.PN ---
Subjective Interval history: Nursing denies any acute deteriorations overnight. Patient herself denies having any chest pain this morning. Says that the swelling in her legs is improved. Physical Exam Vital signs: Vital Signs 08/05/18 14:23 08/05/18 15:11 08/05/18 17:28 Temperature 98.8 F Pulse Rate 99 H 92 H 78 Respiratory Rate 20 20 20 Blood Pressure 166/107 H 140/97 H 146/82 H Pulse Oximetry 98 99 08/05/18 19:10 08/05/18 20:30 08/05/18 21:23 Temperature Pulse Rate 94 H 74 74 Respiratory Rate 20 18 18 Blood Pressure 111/58 L 125/74 141/82 H Pulse Oximetry 08/05/18 22:24 08/06/18 00:00 08/06/18 04:00 Temperature 98.4 F 98.7 F 98.5 F Pulse Rate 70 74 73 Respiratory Rate 20 18 16 Blood Pressure 170/99 H 171/95 H 156/84 H Pulse Oximetry 97 100 100 08/06/18 07:00 08/06/18 08:06 08/06/18 08:49 Temperature 97.9 F Pulse Rate 88 76 Respiratory Rate 20 Blood Pressure 175/100 H Pulse Oximetry 98 98 Intake & Output 08/05/18 08/06/18 08/06/18 18:59 06:59 18:59 Intake Total 240 / 240 Output Total 550 / 550 Balance -310 / -310 Weight 200.7 kg 199 kg Intake: Oral 240 / 240 Output: Urine 550 / 550 Other: Date of Last Bowel Movement 08/05/18 08/04/18 Narrative: Heart sounds regular rate rhythm, no murmurs Clear lungs bilaterally, unlabored breathing Obese female lying in bed, awake and alert, no acute distress Very subtle lower extremity edema, not impressive Results - Labs CBC & Chem 7: 08/06/18 08:13 08/06/18 08:13 Laboratory Results - last 24 hr 08/05/18 08/05/18 08/05/18 15:30 15:30 15:30 CBC w Diff Auto diff final WBC 10.2 RBC 4.28 Hgb 12.6 Hct 37.7 MCV 88.1 MCH 29.5 MCHC 33.4 RDW 14.1 Plt Count 363 MPV 8.5 Neut % (Auto) 61.6 Lymph % (Auto) 26.5 Dixie % (Auto) 6.7 Eos % (Auto) 2.5 Baso % (Auto) 2.7 H Neut # (Auto) 6.2 Lymph # (Auto) 2.7 Dixie # (Auto) 0.7 Eos # (Auto) 0.3 Baso # (Auto) 0.3 H WBC Differential . Differential Comment . PT 10.3 INR 1.0 APTT 30.5 Sodium 138 Potassium 4.1 Chloride 104 Carbon Dioxide 26.9 Anion Gap 7 BUN 14 Creatinine 0.65 Estimated GFR Greater than 89 Random Glucose 100 Calcium 8.0 L Total Bilirubin 0.1 L AST 21 ALT 28 Alkaline Phosphatase 94 Total Creatine Kinase 93 Troponin I Less than 0.02 L B-Natriuretic Peptide Total Protein 7.0 D Albumin 3.0 L Lipase 74 08/05/18 08/05/18 08/06/18 15:30 18:23 00:45 CBC w Diff WBC RBC Hgb Hct MCV MCH MCHC RDW Plt Count MPV Neut % (Auto) Lymph % (Auto) Dixie % (Auto) Eos % (Auto) Baso % (Auto) Neut # (Auto) Lymph # (Auto) Dixie # (Auto) Eos # (Auto) Baso # (Auto) WBC Differential Differential Comment PT INR APTT Sodium Potassium Chloride Carbon Dioxide Anion Gap BUN Creatinine Estimated GFR Random Glucose Calcium Total Bilirubin AST ALT Alkaline Phosphatase Total Creatine Kinase 91 Troponin I Less than 0.02 L Less than 0.02 L B-Natriuretic Peptide 23 Total Protein Albumin Lipase 08/06/18 08/06/18 08/06/18 08:13 08:13 08:13 CBC w Diff WBC 9.0 RBC 4.20 Hgb 12.8 Hct 38.4 MCV 91.4 MCH 30.4 MCHC 33.3 RDW 14.2 Plt Count 210 D MPV 8.9 Neut % (Auto) 63.0 Lymph % (Auto) 27.6 Dixie % (Auto) 5.9 Eos % (Auto) 2.5 Baso % (Auto) 1.0 Neut # (Auto) 5.7 Lymph # (Auto) 2.5 Dixie # (Auto) 0.5 Eos # (Auto) 0.2 Baso # (Auto) 0.1 WBC Differential . Differential Comment Auto diff final PT INR APTT 29.8 Sodium 139 Potassium 4.0 Chloride 105 Carbon Dioxide 27.0 Anion Gap 7 BUN 11 Creatinine 0.61 Estimated GFR Greater than 89 Random Glucose 131 H Calcium 8.3 L Total Bilirubin AST ALT Alkaline Phosphatase Total Creatine Kinase Troponin I B-Natriuretic Peptide Total Protein Albumin Lipase - Imaging Impressions Chest X-Ray 08/05/18 15:11 CONCLUSION: 1. Enlargement of the cardiac silhouette, likely due to technique. 2. Otherwise, no acute abnormality. Venous Doppler Study 08/06/18 00:00 CONCLUSION: 1. Negative examination with no evidence of deep venous thrombosis. Assessment and Plan - Plan 38-year-old white female admitted with chest pain. Previously was admitted to [facility], found to have a small defect that could represent an old scar or ischemia on nuclear stress test, discharged with medical management and close cardiac follow-up. However due to recurring symptoms sooner than her scheduled appointment she decided to present to the emergency department. Heart palpitations/ chest, arm pain, atypical r/o ACS -Troponins within normal limits, cardiology consulted, on heparin drip at this time -Heparin drip HTN, chronic -Resume home medications, monitor vitals Bilateral leg swelling, d-dimer elevated last admission, PE ruled out on 07/30 -BNP wnl, possibly likely secondary dependent edema, but will await echo -ultrasound is negative for DVT Wheezing, likely due smoking -Duonebs as needed DVT prophylaxis: Heparin Discharge Planning: Addendum: Cardiac catheterization showed no acute occlusive disease. Clear for discharge from cardiology standpoint. Patient's affirms that her pain or soreness she has had has been in her shoulder, not in her chest which she adamantly denies, and this pain is reproduced with simple positioning, endorses it as a chronic problem. Patient was counseled extensively on the importance of following up with a primary care provider within a week especially given her electrolytes and her renal function could be altered by taking the Lasix that I prescribed for her to take as needed for lower extremity edema. Was instructed to take potassium only per each dose of Lasix that she had taken. Patient has met maximal benefit from hospitalization is clinically stable for discharge once cleared with cardiology post catheterization protocol.
[2018-08-06 12:19] VITALS: BP 164/78; RESP 18; O2SAT 99
[2018-08-06] MEDS ORDERED: Heparin/NS PF Inj 500 ML ONE (14:23)
[2018-08-06] MEDS ORDERED: Heparin 10,000 UNITS/10 ML Vial (for IV use) ONE (14:25)
[2018-08-06] MEDS ORDERED: fentaNYL Citrate Inj 100 MCG/2 ML Ampul ONE (14:26)
[2018-08-06] MEDS ORDERED: Lidocaine PF 1% Inj 30 ML Vial ONE (14:41)
--- NOTE | 2018-08-06 15:11 | CATHPROC ---
[facility] HIS Report Study Information Study Number Admission Scheduled Start Study Start [id number] Aug 05 2018 5:11PM 08/06/2018 Aug 06 2018 2:22PM [place] Service Cath Endovascular Study Admit Source Facility Department Other [facility] - Data Integrity Analyst Physician and Clinical Staff Initial Sukumar Sauceda Good Humor Vendor Carmencita Palacios,RN Recorder Aarti Ny,MAINFRAME PROGRAMMER TECH2 Scrub Rikki Schwab RCIS(BS) Procedures Performed Procedure Location (Site) Vessel Name Coronary Angiograms LCA Left Coronary Coronary Angiograms RCA Right Coronary L Heart Cath LV Gram-hand inj. LV LV Ventricle Equipment Time Bonded Strand Operator Description Size Mfg Part Number Used/Scraped TRANSDUCER, TRUWAVE [id number] 14:30 VARGAS ULLOA * Used W/STOCKCOCK *[id number] *[id number] *[id number] 14:30 [employer] BLANKET,WARM AIR CCL * Used *[id number] 14:30 [employer] PACK, CCL CUSTOM * Used *[id number] 14:30 [employer] SUPPORT, ARTERIAL ADULT [id number] *[id number] Used BAND, RADIAL COMPRESSION TR [id number] 14:59 Jymob 29CM Used LARGE 29 *[id number] 14:30 Jymob WIRE, EXCHANGE 260CM 3MMJ 260CM Used *[id number] 14:30 NAMIC MANIFOLD, 4 PORT * Used *[id number] 14:30 NYCOMED OMNIPAQUE, 350 MG, 150ML 150ML [id number] Used SHEATH, FR6 TRANSRADIAL [id number] 14:30 [employer] MEDICAL FR 6 Used SLENDER 10CM *[id number] History: Current Medications Medication Dosage/Unit Route Frequency Last Date/Time Taken ASA LISINOPRIL LOPRESSOR History: Allergies Allergy Reaction Augmentin THROAT SWELLS, SOB Cipro Nausea/Vomiting clavulanic acid THROAT SWELLS, SOB ciprofloxacin Nausea/Vomiting amoxicillin THROAT SWELLS, SOB History: Risk Factors Family History of Hypertension Dyslipidemia Previous KS Previous Heart Failure Premature CAD Yes No No No No Prior Valve Prior PCI Prior CABG Surgery No No No Cerebrovascular Peripheral Artery Chronic Lung On Dialysis Diabetes Disease Disease Disease No No No No No History: Stress Tests Stress or Imaging Studies Performed Yes Standard Exercise Stress Test No Stress Echo No Stress Test SPECT No Stress Test CMR Stress Test CMR Result Stress Test CMR Ischemia Risk/Extent Yes Positive Low Cardiac CTA Coronary Calcium Score No No History: Arrhythmias Selection Items Atrial fibrillation History: Other Disease Selection Items HTN History: Other Current Smoker No Labs Hgb (g/dl) Hct (%) RBC (MIL/MM3) WBC (l/cumm) Platelets (thousands) 11.60-17.00 35.00-51.00 4.00-5.90 4.00-11.00 150.00-450.00 12.8 38.4 4.2 9 210 Glucose (mg/dl) BUN (mg/dl) Creatinine (mg/dl) BUN:Creatinine (1:x) 74.00-106.00 7.00-18.00 0.50-1.30 10.00-20.00 100 14 0.6 23.3 Na (meq/l) K (meq/l) Cl (meq/l) CO2 (mmol/L) 136.00-145.00 3.50-5.10 98.00-107.00 21.00-32.00 139 4 105 27 PT (sec) PTT (sec) INR (PTT:PT) 9.80-11.60 24.30-30.10 0.90-1.10 10.3 30.5 1 Medication Medication Total Dose (Bolus/Oral) Medication Total Dosage/Unit 1% XYLOCAINE 2 mL FENTANYL 25 mcg RADIAL COCKTAIL 5 mL (Bolus) VERSED 1 mg Medications (Bolus/Oral) Medication Time Given Dosage/Unit Administered By Reason VERSED 08/06/2018 2:48:07 PM 1 mg Carmencita Palacios 1 mg VERSED given in lab by Carmencita Palacios RN in Left Antecubital via Peripheral IV. Ordered by Sukumar River. 1% XYLOCAINE 08/06/2018 2:48:39 PM 2 mL Sukumar Whitney 2 mL 1% XYLOCAINE given in lab by Sukumar Whitney in Right Radial via Subcutaneous. Ordered by Sukumar Dobson. Ntg 200mcg Verapamil 2.5mg Heparin RADIAL COCKTAIL 08/06/2018 2:50:13 PM 5 mL (Bolus) Sukumar Whitney 2000U 5 mL (Bolus) RADIAL COCKTAIL given in lab by Sukumar Whitney in Right Radial via Radial. Using [Solu tion Name]. Ordered by Sukumar Whitney. Reason: Ntg 200mcg Verapamil 2.5mg Heparin 2000U. FENTANYL 08/06/2018 3:04:09 PM 25 mcg Sukumar Whitney 25 mcg FENTANYL given in lab by Sukumar Whitney in Left Antecubital via Peripheral IV. Ordered by Sukumar River. Medication (Drip) Medication Time Given Dosage/Unit Concentration/Unit Diluent (ml) Solution IV Solutions 08/06/2018 2:22:51 PM 0 mL (IV) 500 NaCl .9 Patient arrived on IV Solutions given by Sukumar Whitney in Left Antecubital via Peripheral IV. Pump /Drip Flow = 20 ml/hr using NaCl .9. Ordered by Sukumar Whitney. Initial Case Assessment Cardiovascular HR NIBP 102 189/124 Edema Present Skin color Skin None Normal Warm Dry Circulatory - Right Pulses Dorsalis Pedis Femoral Radial 3 3 3 Scale (0,1,2,3,4,d) Circulatory - Left Pulses Dorsalis Pedis Femoral Radial 3 3 Scale (0,1,2,3,4,d) Neurological State Oriented to time-place- Alert Moves all extremities person Respiration - General Respiration Rate SpO2 (%) (B/min) 18 96 Final Case Assessment Cardiovascular HR NIBP 92 163/109 Edema Present Skin color Skin None Normal Warm Dry Circulatory - Right Pulses Dorsalis Pedis Femoral Radial 3 3 3 Scale (0,1,2,3,4,d) Circulatory - Left Pulses Dorsalis Pedis Femoral Radial 3 3 Scale (0,1,2,3,4,d) Neurological State Oriented to time-place- Alert Moves all extremities person Respiration - General Respiration Rate SpO2 (%) (B/min) 20 94 Chronological Log Time Study Chronological Log 14:22:40 Patient arrived via Bed. 14:22:40 Patient Name, D.O.B, / Armband Verified By R.N. 14:22:41 Consent signed by the physician and the patient and verified by the Data Integrity Analyst staff. 14:22:41 Pre-op and post- op instructions given; patient acknowledges understanding of instructions. 14:22:45 Allens test performed on the right radial and ulnar artery. 14:22:47 Immediate Presedation assesment performed by physician. 14:22:47 Patient has been NPO for More than 6Hrs. 14:22:48 Skin Breakdown- 14:22:48 Patient Warmer Placed on the Table. 14:22:50 Graham Prominences Protected 14:22:50 A # 20 IV was noted in the Antecubital (left). Grade = 0 Patient arrived on IV Solutions given by Sukumar Whitney in Left Antecubital via Peripheral IV . Pump/Drip Flow = 20 14:22:51 ml/hr using NaCl .9. Ordered by Sukumar Whitney. 14:22:51 History and physical on the chart or being dictated. 14:28:14 Allens test performed on the right radial and ulnar artery. Vitals capture started with the following parameters, Patient=Adult, Interval=5 min, Initial Pr ihickz=605 mmHg, 14:29:56 Deflation Rate=5 mmHg, Cuff placed on Left Arm 14:31:48 AZ=003 bpm, JJMG=807/124 mmhg, SpO2=96.0 %, Resp=18 B/min, Pain=0, Margie=10, Sow=2 Assessment: Initial Case, CC=536 BPM, LZVR=467/124 mmhg, Edema=None, Color=Normal, Skin = Warm, Dry Right Pulses: Slade Ped=3, Femoral=3, Radial=3 14:35:20 Left Pulses: Slade Ped=3, Femoral=3 Neurological: State=Alert, Ox3, ZELAYA Respiration: Resp=18 B/min, SpO2=96 % 14:35:41 HR=87 bpm, RXHS=969/113 mmhg, SpO2=94.0 %, Resp=19 B/min, Pain=0, Margie=10, Sow=2 14:41:13 DK=953 bpm, BAWA=872/124 mmhg, SpO2=96.0 %, Resp=14 B/min, Pain=0, Margie=10, Sow=2 14:42:17 Right Radial and groin(s) prepped with 2% chlorhexidine, and draped after a 3 min. waiting time. 14:43:12 Pressure channel 1 zeroed. 14:45:42 HR=75 bpm, DNSV=102/112 mmhg, SpO2=95.0 %, Resp=14 B/min, Pain=0, Margie=10, Sow=2 14:48:07 1 mg VERSED given in lab by Carmencita Palacios RN in Left Antecubital via Peripheral IV. Ord ered by Sukumar Whitney. Time Out. Correct patient, correct procedure, correct physician, labs, allergies, and equipment verified with labelling machine operator 14:48:12 team present. Fire risk assesment completed (see hard stop sheet for coding). Time Out Conc urred by MD and individual staff in procedure. 14:48:35 Case Start 14:48:39 2 mL 1% XYLOCAINE given in lab by Sukumar Whitney in Right Radial via Subcutaneous. Ordere d by Sukumar Whitney. 14:49:28 Reference ECG taken 14:49:32 Access site was Right Radial Artery . A SHEATH, FR6 TRANSRADIAL SLENDER 10CM FR 6 was advanced into the Radial (right) using the Perc utaneous 14:49:45 technique. 5 mL (Bolus) RADIAL COCKTAIL given in lab by Sukumar Whitney in Right Radial via Radial. Using [Solution Name]. 14:50:13 Ordered by Sukumar Whitney. Reason: Ntg 200mcg Verapamil 2.5mg Heparin 2000U. 14:50:39 HR=70 bpm, IEYW=669/117 mmhg, SpO2=93 %, Resp=15 B/min, Pain=0, Margie=10, Sow=2 A JR 4.0 INFINITI CATHETER FR 4 was advanced over a wire. OMNIPAQUE, 350 MG, 150ML 150ML was us ed for 14:52:11 injections. Recorded Pressure: LV, HR=94, Condition=Condition 1 14:53:06 (Left Ventricle) LV 164/5/19 14:53:19 The LV was manually injected with 10 cc's and visualized. OMNIPAQUE, 350 MG, 150ML 150ML us ed. Recorded Pressure: LV, Ao, HR=96, Condition=Condition 1 14:53:37 (Left Ventricle) LV 140/26/35, (Aorta) Ao 164/122/140 14:54:24 The RCA was injected and visualized at various angles. OMNIPAQUE, 350 MG, 150ML 150ML used . After removing the current catheter a JR 4.0 INFINITI CATHETER FR 4 was advanced over a WIRE, E XCHANGE 260CM 14:54:57 3MMJ 260CM. 14:55:40 HR=94 bpm, INHA=374/104 mmhg, SpO2=93 %, Resp=13 B/min, Pain=0, Margie=10, Sow=2 Recorded Pressure: Ao, HR=98, Condition=Condition 1 14:56:57 (Aorta) Ao 141/110/125 14:57:17 The LCA was injected and visualized at various angles. OMNIPAQUE, 350 MG, 150ML 150ML used . 14:58:24 Catheter was removed 14:58:40 Case End (Physician broke scrub) 14:58:49 Catheter(s) removed without difficulty 15:00:37 HR=92 bpm, RPRD=978/109 mmhg, SpO2=94.0 %, Resp=15 B/min, Pain=0, Margie=10, Osw=2 Radial Compression Device Used. 13 mLs of air placed in BAND, RADIAL COMPRESSION TR LARGE 29 29 CM. Affected 15:01:56 hand 93 % O2 saturation. 15:02:15 No case complications noted. 15:02:17 Cine recording checked. 15:02:20 Bedside Report will be given. 15:02:22 A Left Heart Cath was performed. 15:04:09 25 mcg FENTANYL given in lab by Sukumar Whitney in Left Antecubital via Peripheral IV. Ord ered by Sukumar Whitney. 15:05:23 Vitals capture stopped. Assessment: Final Case, HR=92 BPM, UBGP=147/109 mmhg, Edema=None, Color=Normal, Skin = Warm, D ry Right Pulses: Slade Ped=3, Femoral=3, Radial=3 15:05:30 Left Pulses: Slade Ped=3, Femoral=3 Neurological: State=Alert, Ox3, ZELAYA Respiration: Resp=20 B/min, SpO2=94 % 15:05:55 Patient moved to [facility] End Study - Contrast Media Used In Study Contrast Total Opened (mL) Total Used (mL) Total Wasted (mL) Omnipaque 60 60 0 End Study - Maximum Contrast Load Max Contrast Load (mL) 1658.3 End Study - Radiation Exposure Fluoro Time (minutes) 2.3 End Study - Patient Disposition Complications Transferred To Telemetry Bed
--- NOTE | 2018-08-06 15:25 | MR ---
cc: Sukumar Whitney MD DATE: 08/06/2018 PROCEDURE: Left heart catheterization with left ventriculography and coronary angiography. INDICATIONS FOR PROCEDURE: Chest pain and fixed defect in the apical wall, recurrent admissions for chest pain, multiple cardiac risk factors. DESCRIPTION OF PROCEDURE: The patient was brought to the cardiac catheterization lab. The right wrist was prepped and draped in usual sterile fashion. Arnulfo test was normal. The radial artery area was locally anesthetized with 4 mL of 1% lidocaine. A 6-Tunisian slender sheath was introduced. A solution of 2500 units of heparin, 2.5 mg of verapamil and 200 mcg of nitroglycerin were given intra-arterially and flushed thoroughly. A 4-Tunisian JR4 and JL4 catheter were used to perform left and right coronary angiography and left ventriculography. FINDINGS: The LV pressures 160/5-14, EF 65%. Right coronary artery is dominant, has no significant disease angiographically. There is a variant anatomy with a proximal bifurcation of a large RV branch, which appears to extend to the apex. Reference vessel diameter of this vessel was probably at least 2.75 mm. The right coronary artery actually supplies a small right PDA and a right small left posterolateral artery, which have no significant obstructive disease. The left main coronary artery is large and has no significant disease angiographically. Left circumflex vessel was large, gives off a small mid obtuse marginal vessel, 1 mm reference vessel diameter, terminates into a large posterolateral artery 3 mm reference vessel diameter. No significant obstructive disease. There is a ramus intermedius vessel, which is a 3.5-4 mm reference vessel diameter in the proximal segment with no significant obstructive disease. LAD is 4.5 to possibly 5 mm reference vessel diameter, transapical. No significant obstructive disease. Supplies the distal inferoapical wall. First diagonal artery is relatively a small vessel 2.25 reference vessel diameter. No significant obstructive disease. CONCLUSION: 1. Angiographically no significant obstructive coronary artery disease in a right dominant system as detailed above. 2. Hyperdynamic LV systolic function, EF 65% to 70%. 3. Normal LVEDP equal to 14. 4. Recommend workup of noncardiac chest pain and cardiac risk factor modification. MD [place] Marie/italia , 03:04 PM , 03:12 PM
--- NOTE | 2018-08-06 15:28 | ECHRPT ---
Indication: HEART FAILURE CONCLUSIONS The left ventricular systolic function is difficult to assess and could be 40-50%. Unable to assess regional wall motion. Mild concentric left ventricular hypertrophy. Left ventricle upper limits of normal. The interatrial septum not well visualized. Trace mitral valve regurgitation. There is trace tricuspid valve regurgitation. There is a possible small pericardial effusion present. BP: / HR: Rhythm: Sinus MEASUREMENTS (Male / Female) Normal Values Technical Quality:Poor 2D ECHO LV Diastolic Diameter PLAX 5.3 cm 4.2 - 5.9 / 3.9 - 5.3 cm LV Systolic Diameter PLAX 4.2 cm IVS Diastolic Thickness 1.3 cm 0.6 - 1.0 / 0.6 - 0.9 cm LVPW Diastolic Thickness 1.4 cm 0.6 - 1.0 / 0.6 - 0.9 cm LV Relative Wall Thickness 0.5 RV Internal Dim ED PLAX 2.8 cm LA Systolic Diameter LX 3.7 cm 3.0 - 4.0 / 2.7 - 3.8 cm DOPPLER Mitral E Point Velocity 101.0 cm/s Mitral A Point Velocity 60.3 cm/s Mitral E to A Ratio 1.7 TR Peak Velocity 172.0 cm/s TR Peak Gradient 11.8 mmHg Right Atrial Pressure 10.0 mmHg Pulmonary Artery Systolic Pressu 21.8 mmHg Right Ventricular Systolic Press 21.8 mmHg PV Peak Velocity 77.0 cm/s PV Peak Gradient 2.4 mmHg FINDINGS LEFT VENTRICLE The left ventricular systolic function is difficult to assess and could be 40-50%. Unable to assess regional wall motion. Mild concentric left ventricular hypertrophy. Left ventricle upper limits of normal. RIGHT VENTRICLE Normal right ventricular size and systolic function. LEFT ATRIUM The left atrial size is normal. RIGHT ATRIUM The right atrial size is normal. ATRIAL SEPTUM The interatrial septum not well visualized. AORTA The aortic root and proximal ascending aorta are normal in size on limited imaging. MITRAL VALVE Trace mitral valve regurgitation. AORTIC VALVE Trileaflet aortic valve. No aortic valve stenosis or regurgitation. TRICUSPID VALVE There is trace tricuspid valve regurgitation. PULMONARY VALVE No pulmonary valve regurgitation or stenosis. VESSELS The inferior vena cava is normal in size. PERICARDIUM There is a possible small pericardial effusion present. Darnell Caldwell MD (Electronically Signed) Final Date:06 August 2018 15:27
[2018-08-06 17:48] VITALS: PULSE 80
== END 2018-08-06 18:00 | disposition home or self-care (01) ==
LOC: PHED 14:15 → INTOOBSV 17:11 → PHEDA 17:11 → HCIS 22:09
PROVIDERS: ADMIT Hospitalist; ATTEND Hospitalist